=== PATIENT | female | born 1945 | race Caucasian/White ===

== ENCOUNTER 2016-07-05 20:20 | Inpatient (IN) | payer MEDICARE, OTHER ==
[~2016-07-05] VITALS: Ht 157.5 cm; Wt 75.2 kg
[~2016-07-05 20:20] MED LIST: HYD25 PO; LISI40TA PO; OMEP20CA16 PO; [UNRECOGNIZED DRUG - CODE] SC
[2016-07-05 21:41] LABS: BASOPHIL # 0.1 10^3/ul (0.0-0.1); BASOPHILS % 0.5 % (0.0-2.0); EOSINOPHILS # 0.2 10^3/ul (0.0-0.5); EOSINOPHILS % 1.3 % (0.0-7.0); HEMATOCRIT 43.9 % (37.0-47.0); HEMOGLOBIN 14.9 g/dl (12.0-16.0); LYMPHOCYTES # 6.1 10^3/ul (0.8-2.9); LYMPHOCYTES % 47.4 % (15.0-51.0); MEAN CORPUSCULAR HEMOGLOBIN 28.6 pg (29.0-33.0); MEAN CORPUSCULAR VOLUME 84.1 fl (82.0-101.0); MEAN PLATELET VOLUME 9.8 fl (7.4-10.4); MONOCYTES % 7.8 % (0.0-11.0); NEUTROPHIL # 5.5 10^3/ul (1.6-7.5); PLATELET COUNT 288 10^3/UL (140-440); RED BLOOD COUNT 5.23 10^6/ul (4.20-5.40); RED CELL DISTRIBUTION WIDTH 13.1 % (11.5-14.5); UNCORRECTED WBC 12.8 10^3/ul (4.8-10.8); WHITE BLOOD COUNT 12.8 10^3/ul (4.8-10.8)
[2016-07-05 21:42] LABS: CONDITION 1
[2016-07-05 21:48] LABS: CHLORIDE 95 mmol/L (97-110); INR 0.97; POTASSIUM 3.4 mmol/L (3.5-5.1); PROTIME 12.9 Sec (12.2-14.2); SODIUM 139 mmol/L (135-144)
[2016-07-05 21:49] LABS: PARTIAL THROMBOPLASTIN TIME 25.3 Sec (25.0-35.0)
[2016-07-05 21:51] LABS: ANION GAP 16 (8-16); BLOOD UREA NITROGEN 54 mg/dl (7-20); CALCIUM 9.2 mg/dl (8.4-10.2); CARBON DIOXIDE 31 mmol/L (21-31); CREATININE 1.68 mg/dl (0.44-1.00); GLUCOSE 333 mg/dl (70-220)
[2016-07-05 22:05] LABS: TROPONIN-I < 0.012 ng/ml (0.00-0.12)
--- NOTE | 2016-07-05 22:37 | ERA ---
ER Documentation Chief Complaint Date/Time DATE: 07/05/16 TIME: 22:35 Chief Complaint "HIGH SUGAR, COUGH, CONGESTION, HEADACHE, FOR 2 WEEKS" GLUCOSE 248 HPI This is a 71-year-old female presents to the emergency room for evaluation of a cough, congestion, chest pain for the past 2 weeks. The patient does state that she has hypertension and is a type II diabetic. The patient localizes chest pain in the center of her chest with no radiation and describes the pain as a sharp pain. Patient denies any aggravating or relieving factors for her pain and came to the ER for evaluation. ROS All systems reviewed and are negative except as per history of present illness. Medications Home Meds Reported Medications [[id number]] No Conflict Check, 25 SC BID 09/05/14 Omeprazole* (Omeprazole*) 20 Mg Capsule.dr, 20 MG PO DAILY 03/30/13 Hydrochlorothiazide* (Hydrochlorothiazide*) 25 Mg Tab, 25 MG PO BID 03/30/13 Lisinopril* (Prinivil*) 40 Mg Tablet, 40 MG PO BID 03/30/13 Allergies Allergies: Coded Allergies: No Known Drug Allergy (Verified Allergy, Unknown, 08/05/06) Uncoded Allergies: CODEIN (Allergy, Intermediate, RASHES, 09/05/14) PMhx/Soc History of Surgery: Yes (HYSTERECTOMY) Anesthesia Reaction: No Hx Neurological Disorder: No Hx Respiratory Disorders: No Hx Psychiatric Problems: No Hx Miscellaneous Medical Probl: No Hx Alcohol Use: No Hx Substance Use: No Hx Tobacco Use: No Smoking Status: Never smoker Physical Exam Vitals Vital Signs Date Time Temp Pulse Resp B/P Pulse Ox O2 Delivery O2 Flow Rate FiO2 07/05/16 20:26 97.8 55 18 136/67 100 Physical Exam INITIAL VITAL SIGNS: Reviewed by me GENERAL: The patient is well developed and appropriate for usual state of health in no apparent distress HEENT: Pupils equal, round, and reactive to light. EOMI. There is no scleral icterus. NECK: C-spine is soft and supple, there is no meningismus. There is no cervical lymphadenopathy. LUNGS: Clear to auscultation bilaterally. There are no rales, wheezes or rhonchi. HEART: Regular rate and rhythm, no murmurs, clicks, rubs or gallops. ABDOMEN: Soft, non-tender, non-distended. There are bowel sounds in all four quadrants. No rebound or guarding. EXTREMITIES: There is no peripheral cyanosis or edema. No focal swelling or erythema. NEUROLOGICAL: The patient moves all four extremities with 5/5 strength. Cranial nerves II - XII are intact. Normal gait. Alert and oriented SKIN: There is no apparent rash or petechiae. HEME/LYMPHATIC: There is no evidence of excessive bruising or lymphedema. PSYCHIATRIC: The patient does not appear anxious or depressed. Not Result Diagram: 07/05/16212007/05/162120 Results 24 hrs Laboratory Tests Test 07/05/16 20:26 07/05/16 21:21 Bedside Glucose 248mg/dL Activated Partial Thromboplast Time 25.3Sec Anion Gap 16 Basophils # 0.110^3/ul Basophils % 0.5% Blood Morphology Comment Blood Urea Nitrogen 54mg/dl Calcium Level 9.2mg/dl Carbon Dioxide Level 31mmol/L Chloride Level 95mmol/L Creatinine 1.68mg/dl Eosinophils # 0.210^3/ul Eosinophils % 1.3% Glucose Level 333mg/dl Hematocrit 43.9% Hemoglobin 14.9g/dl INR International Normalized Ratio 0.97 Lymphocytes # 6.110^3/ul Lymphocytes % 47.4% Mean Corpuscular Hemoglobin 28.6pg Mean Corpuscular Hemoglobin Concent 34.0g/dl Mean Corpuscular Volume 84.1fl Mean Platelet Volume 9.8fl Monocytes # 1.010^3/ul Monocytes % 7.8% Neutrophils # 5.510^3/ul Neutrophils % 43.0% Nucleated Red Blood Cells # 0.010^3/ul Nucleated Red Blood Cells % 0.0/100WBC Platelet Count 34891^3/UL Potassium Level 3.4mmol/L Prothrombin Time 12.9Sec Prothrombin Time Ratio 1.0 Red Blood Count 5.2310^6/ul Red Cell Distribution Width 13.1% Sodium Level 139mmol/L Troponin I < 0.012ng/ml White Blood Count 12.810^3/ul Procedures/MDM EKG: Rate/Rhythm: [Normal Sinus Rhythm] QRS, ST, T-waves: [No changes consistent w/ acute ischemia] Impression: [No evidence of ischemia or arrhythmia] Chest X-ray 1V Interpreted by me: Soft Tissue: No acute abnormalities Bones: No acute abnormalities Mediastinum/Cardiac Silhouette/Lungs: [No acute abnormalities] This is a 71-year-old female presents to the ER for evaluation of chest pain. First troponin is negative, first EKG is nonischemic. Chest x-ray is within normal limits. Given this patient's age and risk factors she will be placed in for admission at this time on a telemetry floor under the care of . I have contacted her primary care physician who is okay with the admission. Departure Diagnosis: Primary Impression: Chest pain Additional Impression: Renal insufficiency Condition: STEPHANIE Maldonado DO Jul 05, 2016 22:37
[2016-07-05] MEDS ORDERED: SITA100T8 PO (22:40)
[2016-07-05] MEDS ORDERED: LOSA1TAB20 PO (22:40)
[2016-07-05] MEDS ORDERED: CEFD300C2 PO (22:40)
[2016-07-05] MEDS ORDERED: METO100T13 PO (22:40)
[2016-07-05] MEDS ORDERED: ACETAMINOPHEN 325 MG TAB PO PRN (23:00)
[2016-07-05] MEDS ORDERED: ONDANSETRON 4 MG INJ IV PRN (23:00)
--- NOTE | 2016-07-05 23:47 | RADRPT ---
PROCEDURE: XR Chest. CLINICAL INDICATION: Chest pain TECHNIQUE: Single frontal chest x-ray. COMPARISON: None. FINDINGS: The lungs are adequately expanded. There is eventration of the left hemidiaphragm. There is no foc al consolidation, pleural effusion, or pneumothorax. There is mild cardiomegaly. Mediastinal conto urs are unremarkable. There is mild right convex curvature of the thoracic spine with degenerative disk disease within the thoracic spine. There are no acute fractures. RPTAT: ZZ IMPRESSION: 1. Mild cardiomegaly. 2. No acute pulmonary abnormality. .Sri Cary MD, MD Date Time Electronically viewed and signed by .Sri Cary MD, MD on 07/05/2016 23:47 .T/
[2016-07-06] VITALS (13 sets, daily range): BP systolic 94–170; BP diastolic 52–73; PULSE 47–60; RESP 16–20; Ht 157.5 cm; Wt 75.2 kg
[2016-07-06] MEDS ORDERED: ONDANSETRON 4 MG INJ IV PRN (03:00)
[2016-07-06 03:30] LABS: CREATINE KINASE 34 IU/L (23-200)
[2016-07-06] MEDS ORDERED: GLUCOSE GEL 15 GRAM TUBE PO PRN ×2 (03:30)
[2016-07-06] MEDS ORDERED: DEXTROSE 50% 50 ML SYRINGE IV PRN ×2 (03:30)
[2016-07-06] MEDS ORDERED: GLUCOSE GEL 15 GRAM TUBE BUCCAL PRN (03:30)
[2016-07-06] MEDS ORDERED: GLUCAGON 1 MG INJ IM PRN (03:30)
[2016-07-06 03:46] LABS: TROPONIN-I < 0.012 ng/ml (0.00-0.12)
[2016-07-06] MEDS: PANTOPRAZOLE (EC) 40 MG TAB PO SCH (05:21)
[2016-07-06 07:20] LABS: BASOPHIL # 0.1 10^3/ul (0.0-0.1); BASOPHILS % 0.6 % (0.0-2.0); EOSINOPHILS # 0.2 10^3/ul (0.0-0.5); EOSINOPHILS % 2.1 % (0.0-7.0); HEMATOCRIT 41.8 % (37.0-47.0); LYMPHOCYTES # 5.9 10^3/ul (0.8-2.9); LYMPHOCYTES % 55.4 % (15.0-51.0); MEAN CORPUSCULAR HEMOGLOBIN 28.6 pg (29.0-33.0); MEAN CORPUSCULAR HGB CONC 33.5 g/dl (32.0-37.0); MEAN CORPUSCULAR VOLUME 85.5 fl (82.0-101.0); MONOCYTE # 0.7 10^3/ul (0.3-0.9); NEUTROPHIL # 3.7 10^3/ul (1.6-7.5); NEUTROPHILS % 34.9 % (39.0-77.0); PLATELET COUNT 263 10^3/UL (140-440); RED BLOOD COUNT 4.88 10^6/ul (4.20-5.40); UNCORRECTED WBC 10.6 10^3/ul (4.8-10.8); WHITE BLOOD COUNT 10.6 10^3/ul (4.8-10.8)
[2016-07-06 07:24] LABS: CONDITION 1; LH ANALYZER COMMENTS 1
[2016-07-06] MEDS ORDERED: INSULIN ASPART [NOVOLOG] 3 ML PEN SC SCH ×2 (07:30→21:00)
[2016-07-06 07:37] LABS: POTASSIUM 3.6 mmol/L (3.5-5.1)
[2016-07-06 07:39] LABS: CREATININE 1.47 mg/dl (0.44-1.00)
[2016-07-06 07:40] LABS: PHOSPHORUS 4.6 mg/dl (2.5-4.9)
[2016-07-06 07:41] LABS: CALCIUM 9.3 mg/dl (8.4-10.2); CHOL/HDL RATIO 5.1 RATIO; MAGNESIUM 1.9 mg/dl (1.7-2.5)
[2016-07-06] MEDS: HYDROCHLOROTHIAZIDE 25 MG TAB PO SCH (09:00)
[2016-07-06] MEDS ORDERED: NON-FORMULARY/PATIENT OWN MED (Losartan-Hydrochlorothiazide (Losartan-HCTZ) 1 TAB) PO SCH (09:00)
[2016-07-06] MEDS ORDERED: NON-FORMULARY/PATIENT OWN MED (Sitagliptin* (Januvia*) 100 MG) PO SCH (09:00)
[2016-07-06] MEDS ORDERED: LISINOPRIL 20 MG TAB PO SCH ×2 (09:00)
[2016-07-06] MEDS ORDERED: NON-FORMULARY/PATIENT OWN MED (Omeprazole* 20 MG) PO SCH (09:00)
[2016-07-06] MEDS ORDERED: METOPROLOL (XL) 100 MG TAB PO SCH (09:00)
[2016-07-06] MEDS ORDERED: [UNRECOGNIZED DRUG - OTHER] SC SCH (09:00)
[2016-07-06] MEDS ORDERED: HYDROCHLOROTHIAZIDE 25 MG TAB PO SCH (09:00)
[2016-07-06] MEDS: LINAGLIPTIN 5 MG TABLET PO SCH (09:10)
[2016-07-06] MEDS: LOSARTAN 50 MG TAB PO SCH (09:12)
[2016-07-06] MEDS: INSULIN ISOPHANE SC SCH ×2 (09:17→23:08)
[2016-07-06] MEDS: INSULIN REGULAR SC SCH ×2 (09:17→23:08)
[2016-07-06] MEDS: Insulin NOVOLOG SS MODERATE Algorithm (SS with meals and bedtime) SC SCH ×4 (09:17→21:00)
[2016-07-06 11:21] LABS: CREATINE KINASE 29 IU/L (23-200)
[2016-07-06 11:30] LABS: CK-MB 0.47 ng/ml (0.0-2.4)
[2016-07-06 11:37] LABS: TROPONIN-I < 0.012 ng/ml (0.00-0.12)
[2016-07-06] MEDS: ACETAMINOPHEN 325 MG TAB PO PRN (14:58)
[2016-07-06] MEDS: LISINOPRIL 10 MG TAB PO SCH (21:00)
--- NOTE | 2016-07-06 22:34 | CONS ---
DATE OF ADMISSION: 07/05/2016 DATE OF CONSULTATION: HISTORY OF PRESENT ILLNESS: This is a 71-year-old female with history of diabetes. The patient has been admitted here previously, and the reviewer is advised to contact old record for further details. Please note she speaks [place]ijani, and information may be limited. Her medications at home include: 1. Omeprazole. 2. Hydrochlorothiazide. 3. Lisinopril. 4. Insulin 70/30 twenty-five units b.i.d. 5. Atenelol She was not feeling well and was brought to the emergency room, where blood sugar was 333. BUN and creatinine elevated at 54 and 1.6 respectively. The patient has been since already started on IV fluids, and blood sugars have already begun to improve. PAST MEDICAL HISTORY: The rest of the past history is again poorly elicited. The patient has had a knee surgery in this facility. PERSONAL HISTORY: The patient is and has been living with family members. Apparently her has not been around for 30 years. REVIEW OF SYSTEMS: Rest of the systems is negative for any head, ear, nose, throat problem. She is denying eye problems. No history of neck pain, chest pain although she has admitted to chest pain to the emergency room physician. No acute abdominal pain, flank pain. 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 No seizure, syncope or other medical problem. Additional lab work done in the emergency room also revealed a white count of 12.8 which has now dropped to 10.6. Hematocrit is stable around 43%. The CPK is normal. Blood sugar, as mentioned, has already begun to come down, and the patient is feeling much better. Rest of the system review is unremarkable for any acute joint pain, gout, seizures, syncope, fevers, chills or any other metabolic problem. PHYSICAL EXAMINATION: GENERAL: A pleasant Latin female who is in no acute distress. VITAL SIGNS: Blood pressure is 110/50, heart rate is 60, temperature is 97, respiration is not labored at 18. HEAD, EARS: Unremarkable. EYES: Pale conjunctivae. Sclerae nonicteric. NOSE: Normal mucosa. THROAT: Tongue is pale. No pharyngeal congestion. NECK: Supple. No jugular venous distention. CHEST: Symmetrical. BREASTS: Not examined. LUNGS: Clear. HEART: Regular rhythm, S1 unremarkable. ABDOMEN: Flat, soft. No masses. GENITALIA: Not examined. EXTREMITIES: No cyanosis, clubbing, edema. SKIN: Unremarkable. IMPRESSION: 1. History of diabetes mellitus, out of control. 2. Azotemia, probably prerenal in nature, r/o underlying CKD3. 3. Probably poor compliance. PLAN: This patient has already begun to improve in regard to the blood sugar. Whether she needs further intervention by Endocrinology is a consideration. The patient's blood sugar will be monitored closely. Diabetic education will be provided. As soon as she is stable, she can be discharged. Dictated By: ROHINI JAMES/AUTUMN Conf#: [id number] DID#: [id number] LORENE
[2016-07-07] VITALS (12 sets, daily range): BP systolic 100–122; BP diastolic 54–59; PULSE 53–65; RESP 16–18
[2016-07-07] MEDS: ACCUCHECK AT 2AM (Patients on SS coverage) XX SCH ×2 (02:00)
[2016-07-07] MEDS: PANTOPRAZOLE (EC) 40 MG TAB PO SCH (06:14)
[2016-07-07 07:55] LABS: ALBUMIN 3.3 g/dl (3.3-4.9)
[2016-07-07 07:56] LABS: POTASSIUM 3.3 mmol/L (3.5-5.1)
[2016-07-07 07:58] LABS: ALBUMIN/GLOBULIN RATIO 1.13; BILIRUBIN,INDIRECT 0.2 mg/dl (0-1.1); BILIRUBIN,TOTAL 0.2 mg/dl (0.2-1.3); CREATININE 1.88 mg/dl (0.44-1.00); TOTAL PROTEIN 6.2 g/dl (6.1-8.1)
[2016-07-07 07:59] LABS: CALCIUM 8.8 mg/dl (8.4-10.2)
[2016-07-07] MEDS: Insulin NOVOLOG SS MODERATE Algorithm (SS with meals and bedtime) SC SCH ×4 (09:07→21:26)
[2016-07-07] MEDS: LISINOPRIL 10 MG TAB PO SCH ×2 (09:11→21:23)
[2016-07-07] MEDS: LOSARTAN 50 MG TAB PO SCH (09:11)
[2016-07-07] MEDS: HYDROCHLOROTHIAZIDE 25 MG TAB PO SCH (09:12)
[2016-07-07] MEDS: LINAGLIPTIN 5 MG TABLET PO SCH (09:13)
[2016-07-07] MEDS: METOPROLOL (XL) 25 MG TAB PO SCH ×2 (09:13→21:23)
[2016-07-07] MEDS: INSULIN ISOPHANE SC SCH ×2 (09:16→21:24)
[2016-07-07] MEDS: INSULIN REGULAR SC SCH ×2 (09:16→21:24)
[2016-07-07] MEDS: ACETAMINOPHEN 325 MG TAB PO PRN (18:33)
--- NOTE | 2016-07-07 22:36 | CONS ---
Date/Time of Note Date/Time of Note DATE: 07/07/16 TIME: 22:36 Assessment/Plan Assessment/Plan Chief Complaint/Hosp Course BS still running high Pt seen by Canvas Baster Jumpbasting Await endo consult & begin dc plans Problems: Consultation Date/Type/Reason Admit Date/Time Jul 05, 2016 at 22:35 Initial Consult Date Type of Consultation: renal Reason for Consultation DM out of control, Azotemia 24 HR Interval Summary Free Text/Dictation speaks thai only Constitutional: improved Exam/Review of Systems Vital Signs Vitals Vital Signs Date Time Temp Pulse Resp B/P Pulse Ox O2 Delivery O2 Flow Rate FiO2 07/07/16 20:28 65 07/07/16 20:00 98.5 17 115/55 97 07/06/16 01:14 Room Air Intake and Output 07/06/16 07/06/16 07/07/16 15:00 23:00 07:00 Intake Total 810 ml 720 ml Balance 810 ml 720 ml Exam Constitutional: alert, oriented, well developed Psych: nl mood/affect, no complaints Head: atraumatic, normocephalic Eyes: EOMI, PERRL, nl conjunctiva, nl lids, nl sclera ENMT: nl external ears & nose, nl lips & teeth, nl nasal mucosa & septum Neck: non-tender, supple Respiratory: clear to auscultation, normal air movement Cardiovascular: nl pulses, regular rate and rhythm Gastrointestinal: nl liver, spleen, non-tender, soft Genitourinary - Female: other (BUN/Creat still high) Musculoskeletal: nl extremities to inspection, nl gait and stance Extremities: normal pulses Neurological: NEW [employer]IENT B[employer]ING SERVICES CLERK II-XII intact, nl mental status, nl speech, nl strength Additional Comments Will request 24 hr urine study to eval renal fn Results Result Diagram: 07/06/16 0601 07/07/16 0712 Results 24 hrs Laboratory Tests Test 07/07/16 07:12 07/07/16 08:55 07/07/16 12:46 07/07/16 17:05 Alanine Aminotransferase (ALT/SGPT) 43 Albumin 3.3 Albumin/Globulin Ratio 1.13 Alkaline Phosphatase 106 Anion Gap 15 Aspartate Amino Transf (AST/SGOT) 36 Blood Urea Nitrogen 68 H Calcium Level 8.8 Carbon Dioxide Level 29 Chloride Level 97 Creatinine 1.88 H Direct Bilirubin 0.00 Globulin 2.90 Glucose Level 209 Indirect Bilirubin 0.2 Potassium Level 3.3 L Sodium Level 138 Total Bilirubin 0.2 Total Protein 6.2 Bedside Glucose 203 245 H 148 Test 07/07/16 19:02 07/07/16 20:52 Phosphorus Level 3.9 Bedside Glucose 245 H Medications Medications Current Medications Acetaminophen (Tylenol Tab) 650 mg Q6H PRN PO PAIN AND OR ELEVATED TEMP Last administered on 07/07/16 18:33; Admin Dose 650 MG; Start 07/06/16 at 03:00 Ondansetron HCl (Zofran Inj) 4 mg Q4H PRN IV NAUSEA AND/OR VOMITING; Start at 03:00 Insulin Human Isoph/Insulin Regular (Humulin (70/30)) 10 unit BID SC Last administered on 07/07/16 21:24; Admin Dose 10 UNIT; Start 07/06/16 at 09:00 Linagliptin (Tradjenta) 5 mg DAILY PO Last administered on 07/07/16 09:13; Admin Dose 5 MG; Start 07/06/16 at 09:00 Miscellaneous Information 1 ea NOTE XX ; Start 07/06/16 at 03:30 Glucose (Glutose) 15 gm Q15M PRN PO DECREASED GLUCOSE; Start 07/06/16 at 03:30 Glucose (Glutose) 22.5 gm Q15M PRN PO DECREASED GLUCOSE; Start 07/06/16 at 03: 30 Dextrose (D50w Syringe) 25 ml Q15M PRN IV DECREASED GLUCOSE; Start 07/06/16 at 03:30 Dextrose (D50w Syringe) 50 ml Q15M PRN IV DECREASED GLUCOSE; Start 07/06/16 at 03:30 Glucagon (Glucagen) 1 mg Q15M PRN IM DECREASED GLUCOSE; Start 07/06/16 at 03:30 Glucose (Glutose) 15 gm Q15M PRN BUCCAL DECREASED GLUCOSE; Start 07/06/16 at 03 :30 Pantoprazole (Protonix Tab) 40 mg DAILY@06 PO Last administered on 07/07/16 06 :14; Admin Dose 40 MG; Start 07/06/16 at 06:00 Losartan Potassium (Cozaar) 100 mg DAILY PO Last administered on 07/07/16 09: 11; Admin Dose 100 MG; Start 07/06/16 at 09:00 Hydrochlorothiazide (Hydrochlorothiazide) 25 mg DAILY PO Last administered on 09:12; Admin Dose 25 MG; Start 07/06/16 at 09:00 Diagnostic Test (Pha) (Accucheck) 1 ea 02 XX ; Start 07/07/16 at 02:00 Lisinopril (Zestril) 10 mg BID PO Last administered on 07/07/16 21:23; Admin Dose 10 MG; Start 07/06/16 at 21:00 Metoprolol Succinate (Toprol Xl) 25 mg BID PO Last administered on 07/07/16 21 :23; Admin Dose 25 MG; Start 07/07/16 at 09:00 Diagnostic Test (Pha) (Accucheck) 1 ea XX ; Start 07/07/16 at 02:00 ROHINI BERRIOS MD Jul 07, 2016 22:36
[2016-07-08] VITALS (13 sets, daily range): BP systolic 101–134; BP diastolic 49–72; PULSE 57–75; RESP 17–18
[2016-07-08] MEDS: ACCUCHECK AT 2AM (Patients on SS coverage) XX SCH ×2 (02:34)
[2016-07-08] MEDS: PANTOPRAZOLE (EC) 40 MG TAB PO SCH (06:02)
[2016-07-08] MEDS: LINAGLIPTIN 5 MG TABLET PO SCH (08:07)
[2016-07-08] MEDS: LISINOPRIL 10 MG TAB PO SCH (08:08)
[2016-07-08] MEDS: LOSARTAN 50 MG TAB PO SCH (08:08)
[2016-07-08] MEDS: HYDROCHLOROTHIAZIDE 25 MG TAB PO SCH (08:08)
[2016-07-08] MEDS: METOPROLOL (XL) 25 MG TAB PO SCH (08:09)
[2016-07-08] MEDS: Insulin NOVOLOG SS MODERATE Algorithm (SS with meals and bedtime) SC SCH ×4 (08:10→20:40)
[2016-07-08] MEDS: INSULIN ISOPHANE SC SCH (08:11)
[2016-07-08] MEDS: INSULIN REGULAR SC SCH (08:11)
[2016-07-08] MEDS ORDERED: INSULIN REGULAR SC ONE (10:00)
[2016-07-08] MEDS ORDERED: INSULIN ISOPHANE SC ONE (10:00)
--- NOTE | 2016-07-08 13:29 | CONS ---
Date/Time of Note Date/Time of Note DATE: 07/08/16 TIME: 13:22 Assessment/Plan Assessment/Plan Additional Assessment/Plan Chest pain Myalgias Hypertension Diabetes Obesity Acute kidney injury -Discussed with the patient via candy spreader helper her symptoms. Patient with fevers and chills, body aches, chest pain with deep inspiration and cough. Her symptoms have since improved but still with body aches and bilateral lower extremity pain. Serial cardiac enzymes remain negative, ECG without any significant ischemic abnormalities. Will obtain echocardiogram, start aspirin, check d-dimer and venous Dopplers. Consultation Date/Type/Reason Admit Date/Time Jul 05, 2016 at 22:35 Type of Consultation: cv Reason for Consultation Chest pain Hx of Present Illness This is a 71-year-old female with past medical history of hypertension, diabetes who presents with multiple complaints. Patient states over the past 4- 5 days, she has been having fevers and chills, productive cough with green phlegm. Over the past 2 days she developed chest pain. Chest pain is sharp in nature, worse with deep breaths and with coughing. Chest pain feels occasionally like electric shocks in her chest. She also complains of bilateral lower extremity electric shock feeling which has been off and on over the past few weeks. She denies any dizziness or lightheadedness. She complains of myalgias. Today compared to yesterday, her chest discomfort has improved and her shortness of breath. Her cough is less productive. She otherwise denies exertional chest pain or shortness of breath. She does complain of fatigue after long walks but no chest pain. History was obtained via candy spreader helper. 12 point review of systems was performed with all pertinent positives and negatives mentioned above and all else is negative Constitutional: improved Psychological: nl mood/affect, no complaints Past Medical History Medical History: diabetes, hypertension, renal disease Family History Significant Family History: other (Father with heart disease in his late 50s) Social History Alcohol Use: none Smoking Status: Never smoker Exam/Review of Systems Vital Signs Vitals Vital Signs Date Time Temp Pulse Resp B/P Pulse Ox O2 Delivery O2 Flow Rate FiO2 07/08/16 12:18 61 07/08/16 12:09 97.9 17 133/61 96 07/06/16 01:14 Room Air Intake and Output 07/07/16 07/07/16 07/08/16 15:00 23:00 07:00 Intake Total 800 ml 400 ml Balance 800 ml 400 ml Exam No apparent distress, sitting and eating lunch Constitutional: alert, obese, oriented Head: normocephalic Neck: supple Respiratory: other (Coarse breath sounds bilaterally, no wheezing) Cardiovascular: other (S1-S2 heard), regular rate and rhythm Gastrointestinal: bowel sounds, non-tender, other (No guarding), soft Musculoskeletal: other (Discomfort with palpation of chest wall and bilateral shoulders) Extremities: edema (Trace) Results Result Diagram: 07/06/16 0601 07/07/16 0712 Results 24 hrs Laboratory Tests Test 07/07/16 17:05 07/07/16 19:02 07/07/16 20:52 07/08/16 01:50 Bedside Glucose 148 245 H 189 Phosphorus Level 3.9 Test 07/08/16 07:29 07/08/16 11:29 Bedside Glucose 214 299 H Medications Medications Current Medications Acetaminophen (Tylenol Tab) 650 mg Q6H PRN PO PAIN AND OR ELEVATED TEMP Last administered on 07/07/16 18:33; Admin Dose 650 MG; Start 07/06/16 at 03:00 Ondansetron HCl (Zofran Inj) 4 mg Q4H PRN IV NAUSEA AND/OR VOMITING; Start at 03:00 Linagliptin (Tradjenta) 5 mg DAILY PO Last administered on 07/08/16 08:07; Admin Dose 5 MG; Start 07/06/16 at 09:00 Miscellaneous Information 1 ea NOTE XX ; Start 07/06/16 at 03:30 Glucose (Glutose) 15 gm Q15M PRN PO DECREASED GLUCOSE; Start 07/06/16 at 03:30 Glucose (Glutose) 22.5 gm Q15M PRN PO DECREASED GLUCOSE; Start 07/06/16 at 03: 30 Dextrose (D50w Syringe) 25 ml Q15M PRN IV DECREASED GLUCOSE; Start 07/06/16 at 03:30 Dextrose (D50w Syringe) 50 ml Q15M PRN IV DECREASED GLUCOSE; Start 07/06/16 at 03:30 Glucagon (Glucagen) 1 mg Q15M PRN IM DECREASED GLUCOSE; Start 07/06/16 at 03:30 Glucose (Glutose) 15 gm Q15M PRN BUCCAL DECREASED GLUCOSE; Start 07/06/16 at 03 :30 Pantoprazole (Protonix Tab) 40 mg DAILY@06 PO Last administered on 07/08/16 06 :02; Admin Dose 40 MG; Start 07/06/16 at 06:00 Diagnostic Test (Pha) (Accucheck) 1 ea 02 XX Last administered on 07/08/16 02: 34; Admin Dose 1 EA; Start 07/07/16 at 02:00 Diagnostic Test (Pha) (Accucheck) 1 ea 02 XX Last administered on 07/08/16 02: 34; Admin Dose 1 EA; Start 07/07/16 at 02:00 Insulin Human Isoph/Insulin Regular (Humulin (70/30)) 15 unit BID SC ; Start at 21:00 Lisinopril (Zestril) 20 mg BID PO ; Start 07/08/16 at 21:00 Metoprolol Succinate (Toprol Xl) 25 mg QHS PO ; Start 07/09/16 at 21:00 Acetaminophen/ Aspirin/Caffeine (Excedrin) 1 tab DAILY ONCE PO ; Start at 10:00; Stop 07/08/16 at 10:01; Status UNV Procedures Procedures ECG done on the demonstrates sinus bradycardia 56 bpm, left anterior fascicular block, no significant ischemic STT wave abnormalities Solitario Sahni DO Jul 08, 2016 13:29
[2016-07-08] MEDS: ACETAMINOPHEN 325 MG TAB PO PRN ×2 (13:40→22:39)
[2016-07-08 14:07] LABS: CHOL/HDL RATIO 5.4 RATIO
--- NOTE | 2016-07-08 14:58 | RADRPT ---
Echocardiogram Report Patient Name: AKSHAT GREY Gender: Female Date: 1945 Study Date: 08-Jul-2016 Coffee Grinder: Ramon Castro [facility] Location: [id number] Ref. Physician: SOLITARIO SAHNI Quality: Adequate Procedures: Transthoracic echocardiogram with complete 2D, M-Mode, and doppler examination. Indications: Chest Pain. Shortness of breath. 2D/M Mode Doppler Measurement Value Normal Ranges Measurement Value Normal Ranges LVIDd 2D 4.8 3.5 - 5.6 cm AV Peak Abdelrahman 1.3 m/sec LVIDs 2D 2.4 2.1 - 4.1 cm AV Peak PG 7.0 mmHg FS 2D 50.3 % LVOT Peak Abdelrahman 1.1 m/sec LVPWd 2D 0.9 0.6 - 1.1 cm LVOT Peak PG 5.0 mmHg IVSd 2D 0.9 0.6 - 1.1 cm MV E Peak Abdelrahman 0.4 m/sec IVS/LVPW 2D 1.0 MV A Peak Abdelrahman 0.8 m/sec AoR Diam 2D 3.0 2.0 - 3.7 cm MV E/A 0.5 LA/Ao 2D 1 0 - 1 MV Decel Time 257 msec EDV 2D 109.0 cm3 MV E/A 0.5 ESV 2D 13.3 cm3 TR Peak Abdelrahman 2.3 m/sec LA Dimen 2D 3.5 2.3 - 4.0 cm TR Peak PG 21.0 mmHg RVSP 24.0 mmHg Findings Left Ventricle: Normal left ventricular systolic function. Normal left ventricular cavity size. Normal left ventricular wall thickness. Ejection fraction is visually estimated at 65 %. Tissue Doppler/Mitral Doppler indices are consistent with impaired relaxation (Stage I diastolic dysfunction). Right Ventricle: Normal right ventricular size. Normal right ventricular systolic function. Left Atrium: The left atrium is normal in size. Right Atrium: The right atrium is normal in size. Mitral Valve: Mitral valve leaflets appear mildly thickened. Mild mitral annular calcification. Trace mitral regurgitation. Aortic Valve: Normal appearance of the aortic valve. No significant aortic stenosis or insufficiency. Tricuspid Valve: Normal appearance of the tricuspid valve. Estimated peak PA systolic pressure 24 mmHg. There is trace tricuspid regurgitation. Pulmonic Valve: Normal pulmonic valve appearance. Pericardium: Normal pericardium with no significant pericardial effusion. Aorta: Normal aortic root. IVC: Normal size and normal respiratory collapse consistent with normal right atrial pressure. Conclusions 1.Normal left ventricular systolic function. Normal left ventricular cavity size. Normal left ventricular wall thickness. Ejection fraction is visually estimated at 65 %. Tissue Doppler/Mitral Doppler indices are consistent with impaired relaxation (Stage I diastolic dysfunction). 2.Normal right ventricular size. Normal right ventricular systolic function. 3.The left atrium is normal in size. 4.The right atrium is normal in size. 5.No significant valvular stenosis or regurgitation seen. 6.Normal pericardium with no significant pericardial effusion. Electronically Signed By: Solitario Sahni 08-Jul-2016 14:57:20 -0800 Patient Name: AKSHAT GREY Study Date: 08-Jul-2016 [id number]
[2016-07-08] MEDS ORDERED: POTASSIUM CHLORIDE (SR) 10 MEQ TAB PO ONE (15:30)
[2016-07-08 16:18] LABS: POTASSIUM 3.9 mmol/L (3.5-5.1)
[2016-07-08 16:21] LABS: CREATININE 1.72 mg/dl (0.44-1.00)
[2016-07-08 16:22] LABS: CALCIUM 9.3 mg/dl (8.4-10.2); MAGNESIUM 1.9 mg/dl (1.7-2.5)
[2016-07-08 17:50] LABS: ADD UMIC YES; URINE BILIRUBIN (Dip) NEGATIVE (NEGATIVE); URINE BLOOD (Dip) NEGATIVE (NEGATIVE); URINE COLOR LT. YELLOW (YELLOW); URINE GLUCOSE (Dip) NEGATIVE (NEGATIVE); URINE KETONES (Dip) NEGATIVE (NEGATIVE); URINE LEUKOCYTE ESTERASE (Dip) 1+ (NEGATIVE); URINE NITRITE (Dip) NEGATIVE (NEGATIVE); URINE TOTAL PROTEIN (Dip) NEGATIVE (NEGATIVE); URINE UROBILINOGEN (Dip) 0.2 E.U./dL (0.1-1.0)
[2016-07-08 18:04] LABS: BACTERIA,URINE FEW; URINE RBCS 0-2 /HPF (0)
--- NOTE | 2016-07-08 19:53 | RADRPT ---
PROCEDURE: US Abdomen. CLINICAL INDICATION: Abdominal pain TECHNIQUE: Multiple real-time images were acquired of the patient's right upper quadrant utilizing a high resolution transducer. The images were reviewed on a high-resolution PACS workstation. COMPARISON: None FINDINGS: The liver demonstrates slightly increased in echogenicity and size and no focal lesions are seen. Th e liver measures 16.9 cm in size. No gallstones are identified within the gallbladder. There is no pericholecystic fluid. The gallbladder wall measures 2.8 mm in size. No intrahepatic biliary dilata tion is seen. The common bile duct measures 3.4 mm in maximal dimension. The pancreas is poorly vi sualized. No free fluid is identified. The right kidney is of normal size, and demonstrate normal echogenicity and morphology. The right k idney measures 11.1 cm. There are is no dilatation of the right collecting system. There are no pe rinephric fluid collections. There are no areas of increased echogenicity to suggest nephrolithiasi s. IMPRESSION: Suggestion of mild fatty infiltration of the liver. RPTAT: HPNM Physician Chuck Date Time Electronically viewed and signed by Physician Chuck on 07/08/2016 19:52 /
[2016-07-08] MEDS: LISINOPRIL 20 MG TAB PO SCH (20:45)
[2016-07-08] MEDS ORDERED: INSULIN DETEMIR [LEVEMIR] 3ML CART SC SCH (21:00)
[2016-07-08] MEDS ORDERED: INSULIN REGULAR SC SCH ×2 (21:00)
[2016-07-08] MEDS ORDERED: INSULIN ISOPHANE SC SCH ×2 (21:00)
--- NOTE | 2016-07-08 22:28 | CONS ---
Date/Time of Note Date/Time of Note DATE: 07/08/16 TIME: 22:09 Assessment/Plan Assessment/Plan Chief Complaint/Hosp Course BS still running high Pt seen by Stationary Fireman Await endo consult & begin dc plans Problems: Additional Assessment/Plan In light of BS hovering around 200, will proceed with increasing 70/30 Insulin, while awaiting Endo consult Will proceed with Cardio consult and get Stress test Also consider GBDis. If all normal, may dc in Am Consultation Date/Type/Reason Admit Date/Time Jul 05, 2016 at 22:35 Type of Consultation: renal 24 HR Interval Summary Free Text/Dictation Spoke to daughter at bedside who says t gas been hving chest pain. There's no associated sob, cough or hemoptysis No fever, chills; pt better overall. Exam/Review of Systems Vital Signs Vitals Vital Signs Date Time Temp Pulse Resp B/P Pulse Ox O2 Delivery O2 Flow Rate FiO2 07/08/16 20:08 60 07/08/16 20:06 98.0 18 134/69 97 07/06/16 01:14 Room Air Intake and Output 07/07/16 07/07/16 07/08/16 15:00 23:00 07:00 Intake Total 800 ml 400 ml Balance 800 ml 400 ml Exam Constitutional: alert, oriented, well developed Psych: nl mood/affect, no complaints Head: atraumatic, normocephalic Eyes: EOMI, PERRL, nl conjunctiva, nl lids, nl sclera ENMT: nl external ears & nose, nl lips & teeth, nl nasal mucosa & septum Neck: non-tender, supple Respiratory: clear to auscultation, normal air movement Cardiovascular: nl pulses, regular rate and rhythm Gastrointestinal: nl liver, spleen, non-tender, soft Genitourinary - Female: other (BUN/Creat remain elevated, await 24 hr urine study) Musculoskeletal: nl extremities to inspection, nl gait and stance Extremities: normal pulses Neurological: ANTENNA INSTALLER II-XII intact, nl mental status, nl speech, nl strength Skin: nl turgor, No rash or lesions Results Renal fn may have stabilized Result Diagram: 07/06/16 0601 07/08/16 1551 Results 24 hrs Laboratory Tests Test 07/08/16 01:42 07/08/16 01:50 07/08/16 07:29 07/08/16 11:29 Cholesterol Level 196 Cholesterol/HDL Ratio 5.4 HDL Cholesterol 36 LDL Cholesterol, Calculated 92 Triglycerides Level 341 H Bedside Glucose 189 214 299 H Test 07/08/16 15:51 07/08/16 16:56 07/08/16 17:00 07/08/16 19:32 Anion Gap 15 Blood Urea Nitrogen 62 H Calcium Level 9.3 Carbon Dioxide Level 31 Chloride Level 96 L Creatinine 1.72 H Glucose Level 247 H Magnesium Level 1.9 Potassium Level 3.9 Sodium Level 138 Bedside Glucose 208 149 Urine Bacteria FEW Urine Bilirubin NEGATIVE Urine Clarity CLEAR Urine Color LT. YELLOW Urine Epithelial Cells FEW Urine Glucose NEGATIVE Urine Hemoglobin NEGATIVE Urine Ketones NEGATIVE Urine Leukocyte Esterase 1+ H Urine Microscopic RBC 0-2 Urine Microscopic WBC 5-10 Urine Nitrite NEGATIVE Urine Specific [place] 1.010 Urine Total Protein NEGATIVE Urine Urobilinogen 0.2 E.U./dL Urine pH 5.5 Medications Medications Current Medications Acetaminophen (Tylenol Tab) 650 mg Q6H PRN PO PAIN AND OR ELEVATED TEMP Last administered on 07/08/16 13:40; Admin Dose 650 MG; Start 07/06/16 at 03:00 Ondansetron HCl (Zofran Inj) 4 mg Q4H PRN IV NAUSEA AND/OR VOMITING; Start at 03:00 Linagliptin (Tradjenta) 5 mg DAILY PO Last administered on 07/08/16 08:07; Admin Dose 5 MG; Start 07/06/16 at 09:00 Miscellaneous Information 1 ea NOTE XX ; Start 07/06/16 at 03:30 Glucose (Glutose) 15 gm Q15M PRN PO DECREASED GLUCOSE; Start 07/06/16 at 03:30 Glucose (Glutose) 22.5 gm Q15M PRN PO DECREASED GLUCOSE; Start 07/06/16 at 03: 30 Dextrose (D50w Syringe) 25 ml Q15M PRN IV DECREASED GLUCOSE; Start 07/06/16 at 03:30 Dextrose (D50w Syringe) 50 ml Q15M PRN IV DECREASED GLUCOSE; Start 07/06/16 at 03:30 Glucagon (Glucagen) 1 mg Q15M PRN IM DECREASED GLUCOSE; Start 07/06/16 at 03:30 Glucose (Glutose) 15 gm Q15M PRN BUCCAL DECREASED GLUCOSE; Start 07/06/16 at 03 :30 Pantoprazole (Protonix Tab) 40 mg DAILY@06 PO Last administered on 07/08/16 06 :02; Admin Dose 40 MG; Start 07/06/16 at 06:00 Diagnostic Test (Pha) (Accucheck) 1 ea 02 XX Last administered on 07/08/16 02: 34; Admin Dose 1 EA; Start 07/07/16 at 02:00 Lisinopril (Zestril) 20 mg BID PO Last administered on 07/08/16 20:45; Admin Dose 20 MG; Start 07/08/16 at 21:00 Metoprolol Succinate (Toprol Xl) 25 mg QHS PO ; Start 07/09/16 at 21:00 Acetaminophen/ Aspirin/Caffeine (Excedrin) 1 tab DAILY PRN PO PAIN; Start 07/08 at 10:00 Insulin Detemir (Levemir) 30 unit HS SC Last administered on 07/08/16 20:58; Admin Dose 30 UNIT; Start 07/08/16 at 21:00 ROHINI BERRIOS MD Jul 08, 2016 22:28
--- NOTE | 2016-07-08 22:44 | CONS ---
Date/Time of Note Date/Time of Note DATE: 07/08/16 TIME: 22:05 Assessment/Plan Assessment/Plan Problems: (1) Diabetes type 2, uncontrolled Status: Chronic Comment: Patient with uncontrolled diabetes mellitus type 2. HbA1c 12%. Add prandial dose of repaglinide. Change Humulin 70/30 to Detemir. Continue Tradjenta. Continue to monitor and make adjustments as needed. Qualifiers: Qualified Code: E11.22 - Uncontrolled type 2 diabetes mellitus with stage 3 chronic kidney disease, with long-term current use of insulin Consultation Date/Type/Reason Admit Date/Time Jul 05, 2016 at 22:35 Date of Consultation: Jul 08, 2016 Type of Consultation: Endocrine Reason for Consultation Diabetes Management Referring Provider: ROHINI BERRIOS MD Hx of Present Illness 71 year old woman with 23 year history of diabetes mellitus type 2 presents to [facility] at [facility] after several days of feeling "not well". Patient's PMD recently changed her insulin regimen from Humulin R 70/30 BID to Tresiba QD without prandial coverage. Patient claims blood glucose levels have been increasing. Patient states blood glucose levels on Wednesday were as high as 500 mg/dl. Eyes: no complaints ENT: no complaints Respiratory: no complaints Cardiovascular: chest pain, lightheadedness Gastrointestinal: diarrhea Genitourinary: no complaints Musculoskeletal: no complaints Skin: no complaints Neurologic: no complaints Endocrine: other (hyperglycemia) Psychological: nl mood/affect, no complaints Past Medical History Medical History: diabetes, hypertension, renal disease Past Surgical History Past Surgical Hx: other (knee surgery) Family History Significant Family History: heart disease, diabetes, other (stroke) Social History Alcohol Use: none Smoking Status: Never smoker Drug Use: none Exam/Review of Systems Vital Signs Vitals Vital Signs Date Time Temp Pulse Resp B/P Pulse Ox O2 Delivery O2 Flow Rate FiO2 07/08/16 20:08 60 07/08/16 20:06 98.0 18 134/69 97 07/06/16 01:14 Room Air Intake and Output 07/07/16 07/07/16 07/08/16 15:00 23:00 07:00 Intake Total 800 ml 400 ml Balance 800 ml 400 ml Exam Constitutional: alert, obese, oriented, well developed Psych: nl mood/affect Head: normocephalic Eyes: EOMI, PERRL, nl conjunctiva, nl sclera ENMT: mucosa pink and moist Neck: non-tender, supple Respiratory: clear to auscultation, normal air movement Cardiovascular: regular rate and rhythm Gastrointestinal: nl liver, spleen, non-tender, soft Musculoskeletal: nl extremities to inspection Extremities: normal pulses Neurological: SAIL REPAIR PERSON II-XII intact, nl mental status, nl speech, nl strength Skin: nl turgor Results POC and labs reviewed Result Diagram: 07/06/16 0601 07/08/16 1551 Results 24 hrs Laboratory Tests Test 07/08/16 01:42 07/08/16 01:50 07/08/16 07:29 07/08/16 11:29 Cholesterol Level 196 Cholesterol/HDL Ratio 5.4 HDL Cholesterol 36 LDL Cholesterol, Calculated 92 Triglycerides Level 341 H Bedside Glucose 189 214 299 H Test 07/08/16 15:51 07/08/16 16:56 07/08/16 17:00 07/08/16 19:32 Anion Gap 15 Blood Urea Nitrogen 62 H Calcium Level 9.3 Carbon Dioxide Level 31 Chloride Level 96 L Creatinine 1.72 H Glucose Level 247 H Magnesium Level 1.9 Potassium Level 3.9 Sodium Level 138 Bedside Glucose 208 149 Urine Bacteria FEW Urine Bilirubin NEGATIVE Urine Clarity CLEAR Urine Color LT. YELLOW Urine Epithelial Cells FEW Urine Glucose NEGATIVE Urine Hemoglobin NEGATIVE Urine Ketones NEGATIVE Urine Leukocyte Esterase 1+ H Urine Microscopic RBC 0-2 Urine Microscopic WBC 5-10 Urine Nitrite NEGATIVE Urine Specific [place] 1.010 Urine Total Protein NEGATIVE Urine Urobilinogen 0.2 E.U./dL Urine pH 5.5 Medications Medications Current Medications Acetaminophen (Tylenol Tab) 650 mg Q6H PRN PO PAIN AND OR ELEVATED TEMP Last administered on 07/08/16 13:40; Admin Dose 650 MG; Start 07/06/16 at 03:00 Ondansetron HCl (Zofran Inj) 4 mg Q4H PRN IV NAUSEA AND/OR VOMITING; Start at 03:00 Linagliptin (Tradjenta) 5 mg DAILY PO Last administered on 07/08/16 08:07; Admin Dose 5 MG; Start 07/06/16 at 09:00 Miscellaneous Information 1 ea NOTE XX ; Start 07/06/16 at 03:30 Glucose (Glutose) 15 gm Q15M PRN PO DECREASED GLUCOSE; Start 07/06/16 at 03:30 Glucose (Glutose) 22.5 gm Q15M PRN PO DECREASED GLUCOSE; Start 07/06/16 at 03: 30 Dextrose (D50w Syringe) 25 ml Q15M PRN IV DECREASED GLUCOSE; Start 07/06/16 at 03:30 Dextrose (D50w Syringe) 50 ml Q15M PRN IV DECREASED GLUCOSE; Start 07/06/16 at 03:30 Glucagon (Glucagen) 1 mg Q15M PRN IM DECREASED GLUCOSE; Start 07/06/16 at 03:30 Glucose (Glutose) 15 gm Q15M PRN BUCCAL DECREASED GLUCOSE; Start 07/06/16 at 03 :30 Pantoprazole (Protonix Tab) 40 mg DAILY@06 PO Last administered on 07/08/16 06 :02; Admin Dose 40 MG; Start 07/06/16 at 06:00 Diagnostic Test (Pha) (Accucheck) 1 ea 02 XX Last administered on 07/08/16 02: 34; Admin Dose 1 EA; Start 07/07/16 at 02:00 Lisinopril (Zestril) 20 mg BID PO Last administered on 07/08/16 20:45; Admin Dose 20 MG; Start 07/08/16 at 21:00 Metoprolol Succinate (Toprol Xl) 25 mg QHS PO ; Start 07/09/16 at 21:00 Acetaminophen/ Aspirin/Caffeine (Excedrin) 1 tab DAILY PRN PO PAIN; Start 07/08 at 10:00 Insulin Detemir (Levemir) 30 unit HS SC Last administered on 07/08/16 20:58; Admin Dose 30 UNIT; Start 07/08/16 at 21:00 JEFF COLLIER MD Jul 08, 2016 22:21
[2016-07-09] VITALS (10 sets, daily range): BP systolic 95–193; BP diastolic 52–81; PULSE 60–71; RESP 16–18
[2016-07-09] MEDS: ACCUCHECK AT 2AM (Patients on SS coverage) XX SCH (02:41)
[2016-07-09] MEDS: PANTOPRAZOLE (EC) 40 MG TAB PO SCH (05:23)
[2016-07-09] MEDS ORDERED: REPAGLINIDE 1 MG TAB PO SCH (07:30)
[2016-07-09] MEDS: LISINOPRIL 20 MG TAB PO SCH ×3 (09:00→21:07)
[2016-07-09] MEDS: LINAGLIPTIN 5 MG TABLET PO SCH ×2 (09:00→12:51)
[2016-07-09] MEDS: Insulin NOVOLOG SS MODERATE Algorithm (SS with meals and bedtime) SC SCH ×5 (09:25→21:00)
[2016-07-09 09:42] LABS: POTASSIUM 4.4 mmol/L (3.5-5.1)
[2016-07-09 09:45] LABS: CREATININE 1.38 mg/dl (0.44-1.00)
[2016-07-09 09:46] LABS: CALCIUM 9.1 mg/dl (8.4-10.2)
--- NOTE | 2016-07-09 10:48 | CONS ---
Date/Time of Note Date/Time of Note DATE: 07/09/16 TIME: 10:45 Assessment/Plan Assessment/Plan Problems: (1) Diastolic dysfunction Status: Chronic Comment: The patient is now on a beta-kam which is cardioselective and will not cause hypoglycemic non-awareness. I am in full concurrence with this therapeutic protocol (2) Diabetes type 2, uncontrolled Status: Chronic Comment: Adri be an appropriate place to use metformin-like agent if the patient can tolerate it. The patient does not tolerate this. She is on DPP4 drug in combination with Ambrocio Paglia night and insulin. We will try and get this fine-tuned she is not at goal yet. There is no active evidence of biliary disease or other bacterial infection Qualifiers: Diabetes mellitus complication status: with kidney complications Diabetes mellitus complication detail: with chronic kidney disease Diabetes mellitus intermediate frame tender insulin use: with intermediate frame tender use Chronic kidney disease stage: stage 3 (moderate) Qualified Code: E11.22 - Uncontrolled type 2 diabetes mellitus with stage 3 chronic kidney disease, with long-term current use of insulin (3) Renal insufficiency Status: Acute Comment: This appears to be acute on chronic kidney disease and there appears to be a prerenal component to it. We will go ahead and give a fluid bolus to help correct. Consultation Date/Type/Reason Admit Date/Time Jul 08, 2016 at 22:21 Initial Consult Date 07/08/16 Type of Consultation: Endocrine Reason for Consultation Diabetes mellitus type 2 out of control; prior history of GI intolerance metformin Referring Provider: ROHINI BERRIOS MD 24 HR Interval Summary Free Text/Dictation Patient reports she is still not feeling well and has not been feeling well for a week. Please see below for her complaints Constitutional: no complaints (Denies fevers chills or sweats) Detailed Summary Eyes: no complaints ENT: no complaints Respiratory: no complaints Cardiovascular: no complaints Gastrointestinal: nausea (Nausea persists.), pain, vomiting Genitourinary: no complaints Neurologic: headache (She reports a headache for a week) Exam/Review of Systems Vital Signs Vitals Vital Signs Date Time Temp Pulse Resp B/P Pulse Ox O2 Delivery O2 Flow Rate FiO2 07/09/16 08:29 98.1 68 16 156/69 94 07/09/16 04:00 Room Air Intake and Output 07/08/16 07/08/16 07/09/16 15:00 23:00 07:00 Intake Total 750 ml 500 ml Output Total 900 ml Balance 750 ml -400 ml Exam Constitutional: alert, oriented Neck: non-tender, supple Respiratory: clear to auscultation, normal air movement Cardiovascular: nl pulses, regular rate and rhythm Gastrointestinal: nl liver, spleen, non-tender, soft Results Result Diagram: 07/06/16 0601 07/09/16 0915 Results 24 hrs Laboratory Tests Test 07/08/16 11:29 07/08/16 15:51 07/08/16 16:56 07/08/16 17:00 Bedside Glucose 299 H 208 Anion Gap 15 Blood Urea Nitrogen 62 H Calcium Level 9.3 Carbon Dioxide Level 31 Chloride Level 96 L Creatinine 1.72 H Glucose Level 247 H Magnesium Level 1.9 Potassium Level 3.9 Sodium Level 138 Urine Bacteria FEW Urine Bilirubin NEGATIVE Urine Clarity CLEAR Urine Color LT. YELLOW Urine Epithelial Cells FEW Urine Glucose NEGATIVE Urine Hemoglobin NEGATIVE Urine Ketones NEGATIVE Urine Leukocyte Esterase 1+ H Urine Microscopic RBC 0-2 Urine Microscopic WBC 5-10 Urine Nitrite NEGATIVE Urine Specific [place] 1.010 Urine Total Protein NEGATIVE Urine Urobilinogen 0.2 E.U./dL Urine pH 5.5 Test 07/08/16 19:32 07/09/16 07:43 07/09/16 09:15 07/09/16 09:23 Bedside Glucose 149 416 *H 388 H Anion Gap 14 Blood Urea Nitrogen 55 H Calcium Level 9.1 Carbon Dioxide Level 30 Chloride Level 100 Creatinine 1.38 H Glucose Level 437 #*H Potassium Level 4.4 Sodium Level 140 Medications Medications Current Medications Acetaminophen (Tylenol Tab) 650 mg Q6H PRN PO PAIN AND OR ELEVATED TEMP Last administered on 07/08/16 22:39; Admin Dose 650 MG; Start 07/06/16 at 03:00 Ondansetron HCl (Zofran Inj) 4 mg Q4H PRN IV NAUSEA AND/OR VOMITING; Start at 03:00 Linagliptin (Tradjenta) 5 mg DAILY PO Last administered on 07/08/16 08:07; Admin Dose 5 MG; Start 07/06/16 at 09:00 Miscellaneous Information 1 ea NOTE XX ; Start 07/06/16 at 03:30 Glucose (Glutose) 15 gm Q15M PRN PO DECREASED GLUCOSE; Start 07/06/16 at 03:30 Glucose (Glutose) 22.5 gm Q15M PRN PO DECREASED GLUCOSE; Start 07/06/16 at 03: 30 Dextrose (D50w Syringe) 25 ml Q15M PRN IV DECREASED GLUCOSE; Start 07/06/16 at 03:30 Dextrose (D50w Syringe) 50 ml Q15M PRN IV DECREASED GLUCOSE; Start 07/06/16 at 03:30 Glucagon (Glucagen) 1 mg Q15M PRN IM DECREASED GLUCOSE; Start 07/06/16 at 03:30 Glucose (Glutose) 15 gm Q15M PRN BUCCAL DECREASED GLUCOSE; Start 07/06/16 at 03 :30 Pantoprazole (Protonix Tab) 40 mg DAILY@06 PO Last administered on 07/09/16 05 :23; Admin Dose 40 MG; Start 07/06/16 at 06:00 Diagnostic Test (Pha) (Accucheck) 1 ea 02 XX Last administered on 07/09/16 02: 41; Admin Dose 1 EA; Start 07/07/16 at 02:00 Lisinopril (Zestril) 20 mg BID PO Last administered on 07/08/16 20:45; Admin Dose 20 MG; Start 07/08/16 at 21:00 Metoprolol Succinate (Toprol Xl) 25 mg QHS PO ; Start 07/09/16 at 21:00 Acetaminophen/ Aspirin/Caffeine (Excedrin) 1 tab DAILY PRN PO PAIN; Start 07/08 at 10:00 Insulin Detemir (Levemir) 40 unit HS SC ; Start 07/09/16 at 21:00 Metformin HCl (Glucophage) 500 mg ONCE ONCE PO ; Start 07/09/16 at 11:00; Stop 07/09/16 at 11:01; Status DASHAWN EMERY MD Jul 09, 2016 10:48
[2016-07-09] MEDS ORDERED: LACTATED RINGER'S 500 ML IV ONE (11:00)
[2016-07-09] MEDS ORDERED: metFORMIN 500 MG TAB PO ONE (11:00)
[2016-07-09] MEDS: REPAGLINIDE 1 MG TAB PO SCH ×2 (12:50→17:56)
[2016-07-09] MEDS: ASA/ACETAMINOPHEN/CAFF TAB PO PRN (13:55)
[2016-07-09 14:12] LABS: THYROID STIMULATING HORMONE 0.484 MIU/L (0.465-4.680)
[2016-07-09] MEDS ORDERED: REGADENOSON 0.4 MG/5 ML SYG ONE (16:17)
--- NOTE | 2016-07-09 17:18 | CARRPT ---
DATE OF PROCEDURE: 07/09/2016 PROCEDURE: Lexiscan nuclear stress test. PATIENT HISTORY: This is a 71-year-old female with history of diabetes who presents with chest pain . Baseline ECG demonstrates sinus rhythm with frequent PACs, nonspecific ST segment abnormalities. Ba seline heart rate was 73, baseline blood pressure was 144/72. Lexiscan was administered as per prot ocol. Symptoms were nausea and flushing, which resolved. ECG CHANGES: T-wave flattening. Less than 0.[address] depression in aVL. ARRHYTHMIAS: None. SYMPTOMS: Flushing and nausea. Peak heart rate was 83, peak blood pressure was 154/61. ECG interpretation was nonischemic. The nuclear portion will be interpreted by our radiology colleagues. Dictated By: GAIL EARL/AUTUMN Conf#: [id number] DID#: [id number]
--- NOTE | 2016-07-09 17:31 | RADRPT ---
PROCEDURE: Lexiscan myocardial perfusion study CLINICAL INDICATION: 71 -year-old patient complaining of chest pain. TECHNIQUE: Lexiscan 0.4 mg intravenously separate acquisition gated myocardial perfusion SPECT usi ng Tc 99m Myoview 32.5 mCi intravenously at stress and Tc-99m Myoview, 10.0 mCi intravenously at res t was performed using the rest/stress sequence. Poststress Myoview SPECT images were obtained in th e supine position. COMPARISON: No prior studies. FINDINGS: Perfusion images reveal no evidence of perfusion defects. Lexiscan post stress gated SPECT images demonstrate no wall motion abnormalities. IMPRESSION: 1. No evidence of perfusion defects. 2. No wall motion abnormalities. 3. The left ventricle ejection fraction at stress is greater than 70%. A call report was made to Dr. Sahni at 05:29 p.m. on July 09, 2016. RPTAT: HH .Nena Dang MD, Date Time Electronically viewed and signed by .Nena Dang MD, on 07/09/2016 17:30 .L/
[2016-07-09] MEDS ORDERED: metFORMIN 500 MG TAB PO SCH (18:05)
--- NOTE | 2016-07-09 18:32 | CONS ---
Date/Time of Note Date/Time of Note DATE: 07/09/16 TIME: 18:30 Assessment/Plan Assessment/Plan Additional Assessment/Plan Chest pain with normal cardiac nuclear perfusion study 07/09/2016 Preserved ejection fraction Myalgias Hypertension Diabetes Obesity Acute kidney injury -Patient with normal cardiac nuclear perfusion study. Denies further chest pain or shortness of breath. Main complaint is lower extremity burning-like and aching sensation. Venous Dopplers pending. Consultation Date/Type/Reason Admit Date/Time Jul 08, 2016 at 22:21 Initial Consult Date 07/08/16 Type of Consultation: cv Referring Provider: ROHINI BERRIOS MD 24 HR Interval Summary Free Text/Dictation Denies chest pain, palpitations or shortness of breath. Complains of burning sensation in her feet Exam/Review of Systems Vital Signs Vitals Vital Signs Date Time Temp Pulse Resp B/P Pulse Ox O2 Delivery O2 Flow Rate FiO2 07/09/16 16:09 98.0 64 16 140/68 99 07/09/16 04:00 Room Air Intake and Output 07/08/16 07/08/16 07/09/16 15:00 23:00 07:00 Intake Total 750 ml 500 ml Output Total 900 ml Balance 750 ml -400 ml Exam No apparent distress Constitutional: alert, oriented Head: normocephalic Neck: supple Respiratory: clear to auscultation, normal air movement Cardiovascular: other (S1-S2 heard), regular rate and rhythm Gastrointestinal: bowel sounds, non-tender, soft Extremities: edema (Trace) Results Result Diagram: 07/06/16 0601 07/09/16 0915 Results 24 hrs Laboratory Tests Test 07/08/16 19:32 07/09/16 07:43 07/09/16 09:15 07/09/16 09:23 Bedside Glucose 149 416 *H 388 H Anion Gap 14 Blood Urea Nitrogen 55 H Calcium Level 9.1 Carbon Dioxide Level 30 Chloride Level 100 Creatinine 1.38 H Glucose Level 437 #*H Potassium Level 4.4 Sodium Level 140 Test 07/09/16 12:00 07/09/16 12:17 07/09/16 17:24 Hepatitis B Surface Antigen NEGATIVE Hepatitis C Antibody NEGATIVE Thyroid Stimulating Hormone (TSH) 0.484 Bedside Glucose 316 H 139 Medications Medications Current Medications Acetaminophen (Tylenol Tab) 650 mg Q6H PRN PO PAIN AND OR ELEVATED TEMP Last administered on 07/08/16 22:39; Admin Dose 650 MG; Start 07/06/16 at 03:00 Ondansetron HCl (Zofran Inj) 4 mg Q4H PRN IV NAUSEA AND/OR VOMITING; Start at 03:00 Linagliptin (Tradjenta) 5 mg DAILY PO Last administered on 07/09/16 12:51; Admin Dose 5 MG; Start 07/06/16 at 09:00 Miscellaneous Information 1 ea NOTE XX ; Start 07/06/16 at 03:30 Glucose (Glutose) 15 gm Q15M PRN PO DECREASED GLUCOSE; Start 07/06/16 at 03:30 Glucose (Glutose) 22.5 gm Q15M PRN PO DECREASED GLUCOSE; Start 07/06/16 at 03: 30 Dextrose (D50w Syringe) 25 ml Q15M PRN IV DECREASED GLUCOSE; Start 07/06/16 at 03:30 Dextrose (D50w Syringe) 50 ml Q15M PRN IV DECREASED GLUCOSE; Start 07/06/16 at 03:30 Glucagon (Glucagen) 1 mg Q15M PRN IM DECREASED GLUCOSE; Start 07/06/16 at 03:30 Glucose (Glutose) 15 gm Q15M PRN BUCCAL DECREASED GLUCOSE; Start 07/06/16 at 03 :30 Pantoprazole (Protonix Tab) 40 mg DAILY@06 PO Last administered on 07/09/16 05 :23; Admin Dose 40 MG; Start 07/06/16 at 06:00 Diagnostic Test (Pha) (Accucheck) 1 ea 02 XX Last administered on 07/09/16 02: 41; Admin Dose 1 EA; Start 07/07/16 at 02:00 Lisinopril (Zestril) 20 mg BID PO Last administered on 07/09/16 12:50; Admin Dose 20 MG; Start 07/08/16 at 21:00 Metoprolol Succinate (Toprol Xl) 25 mg QHS PO ; Start 07/09/16 at 21:00 Acetaminophen/ Aspirin/Caffeine (Excedrin) 1 tab DAILY PRN PO PAIN Last administered on 07/09/16 13:55; Admin Dose 1 TAB; Start 07/08/16 at 10:00 Insulin Detemir (Levemir) 40 unit HS SC ; Start 07/09/16 at 21:00 Solitario Sahni DO Jul 09, 2016 18:32
--- NOTE | 2016-07-09 18:49 | CONS ---
Date/Time of Note Date/Time of Note DATE: 07/09/16 TIME: 18:35 Assessment/Plan Assessment/Plan Chief Complaint/Hosp Course BS still running high Pt seen by Electrolog Operator Await endo consult & begin dc plans Problems: Additional Assessment/Plan Pt will need detailed instruction re her antidiabetic regimen which has been revamped, hoping that she's be ble to keep up with it. She only checks her BS once at home Await cardiac clearance for discharge. Consultation Date/Type/Reason Admit Date/Time Jul 08, 2016 at 22:21 Type of Consultation: Referring Provider: ROHINI BERRIOS MD 24 HR Interval Summary Free Text/Dictation Pt still c/o chest pain, seen by cardiology Final results of the [facility] pending Exam/Review of Systems Vital Signs Vitals Vital Signs Date Time Temp Pulse Resp B/P Pulse Ox O2 Delivery O2 Flow Rate FiO2 07/09/16 16:09 98.0 64 16 140/68 99 07/09/16 04:00 Room Air Intake and Output 07/08/16 07/08/16 07/09/16 15:00 23:00 07:00 Intake Total 750 ml 500 ml Output Total 900 ml Balance 750 ml -400 ml Exam Constitutional: alert, oriented, well developed Psych: nl mood/affect, no complaints Head: atraumatic, normocephalic Eyes: EOMI, PERRL, nl conjunctiva, nl lids, nl sclera ENMT: nl external ears & nose, nl lips & teeth, nl nasal mucosa & septum Neck: non-tender, supple Respiratory: clear to auscultation, normal air movement Cardiovascular: nl pulses, regular rate and rhythm Gastrointestinal: nl liver, spleen, non-tender, soft Musculoskeletal: nl extremities to inspection, nl gait and stance Extremities: normal pulses Neurological: TRANSITIONAL LIVING SPECIALIST II-XII intact, nl mental status, nl speech, nl strength Skin: nl turgor, No rash or lesions Additional Comments Pt seen by Endo, consult note reviewed Results BUN/Creat improved a bit tho BS still fluctuating Result Diagram: 07/06/16 0601 07/09/16 0915 Results 24 hrs Laboratory Tests Test 07/08/16 19:32 07/09/16 07:43 07/09/16 09:15 07/09/16 09:23 Bedside Glucose 149 416 *H 388 H Anion Gap 14 Blood Urea Nitrogen 55 H Calcium Level 9.1 Carbon Dioxide Level 30 Chloride Level 100 Creatinine 1.38 H Glucose Level 437 #*H Potassium Level 4.4 Sodium Level 140 Test 07/09/16 12:00 07/09/16 12:17 07/09/16 17:24 Hepatitis B Surface Antigen NEGATIVE Hepatitis C Antibody NEGATIVE Thyroid Stimulating Hormone (TSH) 0.484 Bedside Glucose 316 H 139 Medications Medications Current Medications Acetaminophen (Tylenol Tab) 650 mg Q6H PRN PO PAIN AND OR ELEVATED TEMP Last administered on 07/08/16 22:39; Admin Dose 650 MG; Start 07/06/16 at 03:00 Ondansetron HCl (Zofran Inj) 4 mg Q4H PRN IV NAUSEA AND/OR VOMITING; Start at 03:00 Linagliptin (Tradjenta) 5 mg DAILY PO Last administered on 07/09/16 12:51; Admin Dose 5 MG; Start 07/06/16 at 09:00 Miscellaneous Information 1 ea NOTE XX ; Start 07/06/16 at 03:30 Glucose (Glutose) 15 gm Q15M PRN PO DECREASED GLUCOSE; Start 07/06/16 at 03:30 Glucose (Glutose) 22.5 gm Q15M PRN PO DECREASED GLUCOSE; Start 07/06/16 at 03: 30 Dextrose (D50w Syringe) 25 ml Q15M PRN IV DECREASED GLUCOSE; Start 07/06/16 at 03:30 Dextrose (D50w Syringe) 50 ml Q15M PRN IV DECREASED GLUCOSE; Start 07/06/16 at 03:30 Glucagon (Glucagen) 1 mg Q15M PRN IM DECREASED GLUCOSE; Start 07/06/16 at 03:30 Glucose (Glutose) 15 gm Q15M PRN BUCCAL DECREASED GLUCOSE; Start 07/06/16 at 03 :30 Pantoprazole (Protonix Tab) 40 mg DAILY@06 PO Last administered on 07/09/16 05 :23; Admin Dose 40 MG; Start 07/06/16 at 06:00 Diagnostic Test (Pha) (Accucheck) 1 ea 02 XX Last administered on 07/09/16 02: 41; Admin Dose 1 EA; Start 07/07/16 at 02:00 Lisinopril (Zestril) 20 mg BID PO Last administered on 07/09/16 12:50; Admin Dose 20 MG; Start 07/08/16 at 21:00 Metoprolol Succinate (Toprol Xl) 25 mg QHS PO ; Start 07/09/16 at 21:00 Acetaminophen/ Aspirin/Caffeine (Excedrin) 1 tab DAILY PRN PO PAIN Last administered on 07/09/16 13:55; Admin Dose 1 TAB; Start 07/08/16 at 10:00 Insulin Detemir (Levemir) 40 unit HS SC ; Start 07/09/16 at 21:00 Aspirin (Aspirin) 81 mg DAILY PO ; Start 07/10/16 at 09:00; Status ROHINI LORENZANA MD Jul 09, 2016 18:45
[2016-07-09] MEDS ORDERED: HEPARIN 1000 UNITS/ML 10 ML INJ IV PRN ×2 (20:30)
[2016-07-09] MEDS ORDERED: hydrALAzine 20 MG INJ IV PRN (20:30)
[2016-07-09] MEDS ORDERED: HEPARIN 25000 UNITS/250 ML 250 ML IV SCH (20:30)
[2016-07-09] MEDS ORDERED: HEPARIN 1000 UNITS/ML 10 ML INJ IV ONE (20:30)
[2016-07-09] MEDS ORDERED: INSULIN DETEMIR [LEVEMIR] 3ML CART SC SCH (21:00)
[2016-07-09] MEDS ORDERED: METOPROLOL (XL) 25 MG TAB PO SCH (21:00)
--- NOTE | 2016-07-09 21:04 | RADRPT ---
PROCEDURE: US Lower extremity Venous. CLINICAL INDICATION: Leg pain and edema. TECHNIQUE: Multiple sonographic images of the bilateral lower extremity deep venous system was obt ained utilizing grayscale, color-flow, compressive sonography and doppler imaging with augmentation. The images were reviewed on a PACS workstation. COMPARISON: None. FINDINGS: There is normal compressibility and flow within the bilateral common femoral, deep femoral, superfic ial femoral, posterior tibial, and popliteal veins. Noncompressible occlusive intraluminal thrombus within the peroneal veins bilaterally. IMPRESSION: Occlusive intraluminal thrombus within the peroneal veins bilaterally. No other evidence of DVT. RPTAT:AAJJ Physician Luca Date Time Electronically viewed and signed by Physician Luca on 07/09/2016 21:04 TIN/
[2016-07-09] MEDS: METOPROLOL 25 MG TAB PO SCH (21:08)
[2016-07-09] MEDS: APIXABAN 5 MG TABLET PO SCH (21:13)
[2016-07-09 21:48] LABS: BASOPHILS % 0.2 % (0.0-2.0); EOSINOPHILS # 0.1 10^3/ul (0.0-0.5); EOSINOPHILS % 0.9 % (0.0-7.0); HEMATOCRIT 38.7 % (37.0-47.0); LYMPHOCYTES # 4.5 10^3/ul (0.8-2.9); LYMPHOCYTES % 36.6 % (15.0-51.0); MEAN CORPUSCULAR HEMOGLOBIN 28.4 pg (29.0-33.0); MEAN CORPUSCULAR HGB CONC 33.7 g/dl (32.0-37.0); MEAN CORPUSCULAR VOLUME 84.3 fl (82.0-101.0); MONOCYTE # 0.9 10^3/ul (0.3-0.9); MONOCYTES % 7.3 % (0.0-11.0); NEUTROPHIL # 6.7 10^3/ul (1.6-7.5); PLATELET COUNT 222 10^3/UL (140-440); RED BLOOD COUNT 4.59 10^6/ul (4.20-5.40); RED CELL DISTRIBUTION WIDTH 13.2 % (11.5-14.5); UNCORRECTED WBC 12.2 10^3/ul (4.8-10.8); WHITE BLOOD COUNT 12.2 10^3/ul (4.8-10.8)
[2016-07-09 21:53] LABS: CONDITION 1
[2016-07-09 21:58] LABS: PARTIAL THROMBOPLASTIN TIME 25.6 Sec (25.0-35.0); PROTIME 13.2 Sec (12.2-14.2)
[2016-07-09 23:23] LABS: COLLECTION PERIOD 24 hrs
[2016-07-10] VITALS (9 sets, daily range): BP systolic 107–146; BP diastolic 55–67; PULSE 58–61; RESP 16–19
[2016-07-10] MEDS: ACCUCHECK AT 2AM (Patients on SS coverage) XX SCH (02:00)
[2016-07-10] MEDS: ACETAMINOPHEN 325 MG TAB PO PRN ×2 (02:23→14:59)
[2016-07-10] MEDS: PANTOPRAZOLE (EC) 40 MG TAB PO SCH (06:25)
[2016-07-10 08:12] LABS: POTASSIUM 3.6 mmol/L (3.5-5.1)
[2016-07-10 08:14] LABS: CREATININE 1.16 mg/dl (0.44-1.00)
[2016-07-10 08:15] LABS: CALCIUM 8.9 mg/dl (8.4-10.2)
[2016-07-10] MEDS: REPAGLINIDE 1 MG TAB PO SCH ×3 (08:32→17:51)
[2016-07-10] MEDS: LINAGLIPTIN 5 MG TABLET PO SCH (08:33)
[2016-07-10] MEDS: APIXABAN 5 MG TABLET PO SCH (08:34)
[2016-07-10] MEDS: Insulin NOVOLOG SS MODERATE Algorithm (SS with meals and bedtime) SC SCH ×3 (08:34→18:01)
[2016-07-10] MEDS: METOPROLOL 25 MG TAB PO SCH (08:35)
[2016-07-10] MEDS: LISINOPRIL 20 MG TAB PO SCH (08:35)
[2016-07-10] MEDS: ASA/ACETAMINOPHEN/CAFF TAB PO PRN (08:35)
[2016-07-10] MEDS ORDERED: ASPIRIN 81 MG TAB PO SCH (09:00)
[2016-07-10 09:42] LABS: SCRET 1.16 mg/dl (0.44-1.00)
--- NOTE | 2016-07-10 14:26 | CONS ---
Date/Time of Note Date/Time of Note DATE: 07/10/16 TIME: 14:24 Assessment/Plan Assessment/Plan Additional Assessment/Plan Chest pain with normal cardiac nuclear perfusion study 07/09/2016 Preserved ejection fraction Bilateral lower extremity DVTs Myalgias Hypertension Diabetes Obesity Acute kidney injury -Venous ultrasound with bilateral lower extremity DVTs. Patient started on eliquis. Dosing regiment was explained in detail to patient and daughter at bedside of 10 mg twice a day for an additional 6 days and then 5 mg twice a day for a minimum of 6 months. Prescription was left in the chart and case management consultation was requested to confirm insurance approval. Aspirin has been stopped. Consultation Date/Type/Reason Admit Date/Time Jul 08, 2016 at 22:21 Initial Consult Date 07/08/16 Type of Consultation: cv Referring Provider: ROHINI BERRIOS MD 24 HR Interval Summary Free Text/Dictation Patient denies chest pain, shortness of breath. Still with lower extremity discomfort Exam/Review of Systems Vital Signs Vitals Vital Signs Date Time Temp Pulse Resp B/P Pulse Ox O2 Delivery O2 Flow Rate FiO2 07/10/16 12:30 58 07/10/16 11:59 98.6 19 146/67 99 07/09/16 04:00 Room Air Intake and Output 07/09/16 07/09/16 07/10/16 15:00 23:00 07:00 Intake Total 680 ml Output Total 2200 ml Balance -1520 ml Exam No apparent distress Constitutional: alert, oriented Head: normocephalic Neck: supple Respiratory: other (Coarse breath sounds bilaterally, no wheezing) Cardiovascular: other (S1-S2 heard), regular rate and rhythm Gastrointestinal: bowel sounds, non-tender, soft Extremities: edema (Trace) Results Result Diagram: 07/09/16211807/10/16 0720 Results 24 hrs Laboratory Tests Test 07/09/16 17:23 07/09/16 17:24 07/09/16 21:16 07/09/16 21:19 Creatinine Clearance 63.0 L Urine Collection Duration 24 Urine Creatinine Timed 24 Urine Random Creatinine 46.78 Urine Total Protein 24 Hour Urine Total Volume (Protein) Urine Total Volume 24 Hours 2250 Bedside Glucose 139 143 Activated Partial Thromboplast Time 25.6 Basophils # 0.0 Basophils % 0.2 Blood Morphology Comment Eosinophils # 0.1 Eosinophils % 0.9 Hematocrit 38.7 Hemoglobin 13.0 INR International Normalized Ratio 1.00 Lymphocytes # 4.5 H Lymphocytes % 36.6 Mean Corpuscular Hemoglobin 28.4 L Mean Corpuscular Hemoglobin Concent 33.7 Mean Corpuscular Volume 84.3 Mean Platelet Volume 10.0 Monocytes # 0.9 Monocytes % 7.3 Neutrophils # 6.7 Neutrophils % 55.0 Nucleated Red Blood Cells # 0.0 Nucleated Red Blood Cells % 0.0 Platelet Count 222 Prothrombin Time 13.2 Prothrombin Time Ratio 1.0 Red Blood Count 4.59 Red Cell Distribution Width 13.2 White Blood Count 12.2 H Test 07/09/16 22:44 07/10/16 02:18 07/10/16 06:24 07/10/16 07:20 Bedside Glucose 157 239 H 240 H Anion Gap 16 Blood Urea Nitrogen 39 #H Calcium Level 8.9 Carbon Dioxide Level 31 Chloride Level 102 Creatinine 1.16 H Glucose Level 223 #H Potassium Level 3.6 Sodium Level 145 H Test 07/10/16 07:43 07/10/16 11:59 Bedside Glucose 209 231 H Medications Medications Current Medications Acetaminophen (Tylenol Tab) 650 mg Q6H PRN PO PAIN AND OR ELEVATED TEMP Last administered on 07/10/16 02:23; Admin Dose 650 MG; Start 07/06/16 at 03:00 Ondansetron HCl (Zofran Inj) 4 mg Q4H PRN IV NAUSEA AND/OR VOMITING Last administered on 07/09/16 21:20; Admin Dose 4 MG; Start 07/06/16 at 03:00 Linagliptin (Tradjenta) 5 mg DAILY PO Last administered on 07/10/16 08:33; Admin Dose 5 MG; Start 07/06/16 at 09:00 Miscellaneous Information 1 ea NOTE XX ; Start 07/06/16 at 03:30 Glucose (Glutose) 15 gm Q15M PRN PO DECREASED GLUCOSE; Start 07/06/16 at 03:30 Glucose (Glutose) 22.5 gm Q15M PRN PO DECREASED GLUCOSE; Start 07/06/16 at 03: 30 Dextrose (D50w Syringe) 25 ml Q15M PRN IV DECREASED GLUCOSE; Start 07/06/16 at 03:30 Dextrose (D50w Syringe) 50 ml Q15M PRN IV DECREASED GLUCOSE; Start 07/06/16 at 03:30 Glucagon (Glucagen) 1 mg Q15M PRN IM DECREASED GLUCOSE; Start 07/06/16 at 03:30 Glucose (Glutose) 15 gm Q15M PRN BUCCAL DECREASED GLUCOSE; Start 07/06/16 at 03 :30 Pantoprazole (Protonix Tab) 40 mg DAILY@06 PO Last administered on 07/10/16 06 :25; Admin Dose 40 MG; Start 07/06/16 at 06:00 Diagnostic Test (Pha) (Accucheck) 1 ea 02 XX Last administered on 07/09/16 02: 41; Admin Dose 1 EA; Start 07/07/16 at 02:00 Lisinopril (Zestril) 20 mg BID PO Last administered on 07/10/16 08:35; Admin Dose 20 MG; Start 07/08/16 at 21:00 Acetaminophen/ Aspirin/Caffeine (Excedrin) 1 tab DAILY PRN PO PAIN Last administered on 07/10/16 08:35; Admin Dose 1 TAB; Start 07/08/16 at 10:00 Insulin Detemir (Levemir) 40 unit HS SC Last administered on 07/09/16 22:51; Admin Dose 40 UNIT; Start 07/09/16 at 21:00 Metoprolol Tartrate (Lopressor) 25 mg BID PO Last administered on 07/10/16 08: 35; Admin Dose 25 MG; Start 07/09/16 at 21:00 Hydralazine HCl (Apresoline) 25 mg TID PO Last administered on 07/10/16 12:25 ; Admin Dose 25 MG; Start 07/09/16 at 21:00 Hydralazine HCl (Apresoline) 10 mg Q6H PRN IV SBP > 160; Start 07/09/16 at 20: 30 Apixaban (Eliquis) 10 mg BID PO Last administered on 07/10/16 08:34; Admin Dose 10 MG; Start 07/09/16 at 21:00 Insulin Human NPH (Humulin N) 10 unit HS SC ; Start 07/10/16 at 21:00 Solitario Sahni DO Jul 10, 2016 14:26
[2016-07-10] MEDS ORDERED: NPH, HUMAN INSULIN ISOPHANE 3ML VIAL SC SCH (21:00)
== END 2016-07-10 20:28 | disposition home or self-care (01) | DRG 313 ==
LOC: E/R 20:20 → INTOOBSV 22:35 → MS4 22:35 → OBSVTOIN 07-08 22:21
PROVIDERS: ADMIT Internal Medicine Nephrology; ATTEND Internal Medicine Nephrology
DX: R07.9 Chest pain, unspecified (principal); N17.9 Acute kidney failure, unspecified; E11.22 Type 2 diabetes mellitus with diabetic chronic kidney disease; E11.65 Type 2 diabetes mellitus with hyperglycemia; I82.4Z3 Acute embolism and thrombosis of unspecified deep veins of distal lower extremity, bilateral; Z79.4 Long term (current) use of insulin; M79.1 Myalgia; I12.9 Hypertensive chronic kidney disease with stage 1 through stage 4 chronic kidney disease, or unspecified chronic kidney disease; N18.3 Chronic kidney disease, stage 3 (moderate)
CPT/HCPCS: 36415; 71010; 76705; 78452; 80048; 80053; 80061; 81001; 81003; 82550; 82553; 82575; 82962; 83036; 83735; 84100; 84156; 84443; 84484; 85025; 85610; 85730; 86803; 87340; 93005; 93017; 93306; 93923; 99217; G0378; A9500; A9505; J1815; J2405; J2785; J7120

== ENCOUNTER 2016-08-11 10:11 | Day surgery (SDC) | payer MEDICARE, OTHER ==
[~2016-08-11] VITALS: Ht 154.9 cm; Wt 77.4 kg
[~2016-08-11 10:11] MED LIST changes: +CEFD300C2 PO; -HYD25 PO; +METO100T13 PO; +SITA100T8 PO
[2016-08-11 12:00] VITALS: Ht 154.9 cm; Wt 77.4 kg
[2016-08-11] MEDS ORDERED: METF500T4 PO (12:13)
[2016-08-11] MEDS ORDERED: AMLO2.5T78 PO (12:13)
[2016-08-11] MEDS ORDERED: RANI150T9 PO (12:13)
[2016-08-11] MEDS ORDERED: HYD25 PO (12:13)
[2016-08-11] MEDS ORDERED: FENTAnyl 50 MCG/ML VIAL ONE (12:21)
[2016-08-11] MEDS ORDERED: PROPOFOL 20 ML ONE (12:21)
[2016-08-11 12:29] VITALS: BP 195/78; PULSE 51; RESP 12
[2016-08-11] MEDS ORDERED: hydrALAzine 20 MG INJ ONE (12:33)
[2016-08-11 13:00] VITALS: BP 110/53; PULSE 58; RESP 18
[2016-08-11 13:20] VITALS: BP 105/52; PULSE 54; RESP 18
--- NOTE | 2016-08-11 14:22 | GILP ---
DATE OF PROCEDURE: 08/11/2016 NAME OF PROCEDURE: Esophagogastroduodenoscopy and biopsy. SURGEON: Tucker Duran MD PREOPERATIVE DIAGNOSIS: Abdominal pain, loss of appetite and weight loss. POSTOPERATIVE DIAGNOSES: 1. Hiatal hernia. 2. Gastroesophageal reflux disease. 3. Gastritis with erosions. 4. Gastric mucosal biopsies were taken for Helicobacter pylori test. INDICATION FOR THE PROCEDURE: Ms. Marcie Charles is a 71-year-old female patient who had upper ab dominal pain, loss of appetite and weight loss. The patient was scheduled for endoscopic examinatio n for further evaluation. The procedure and possible complications are well explained to the patient, she understood and conse nted to the procedure. DESCRIPTION OF PROCEDURE: Under the influence of anesthesia, the gastroscope was carefully introduc ed into the esophagus and under direct vision, it was advanced to the stomach and through the pyloru s into the duodenal bulb and descending duodenum. FINDINGS: ESOPHAGUS: The patient had a small hiatal hernia and gastroesophageal reflux disease. STOMACH: She had gastritis with erosions. Gastric mucosal biopsies were taken for H. pylori test. DUODENUM: Normal. She tolerated the procedure very well and there was no complication from the procedure. At the end of the procedure, she was awake with stable vital signs and she was discharged home to the care of h er family. IMPRESSION: 1. Small hiatal hernia. 2. Gastroesophageal reflux disease. 3. Gastritis with erosions. 4. Gastric mucosal biopsies were taken for Helicobacter pylori test. PLAN: 1. Continue omeprazole and Zantac. 2. Await H. pylori test report. Dictated By: TUCKER SHELL/AUTUMN Conf#: [id number] DID#: [id number] CC: TUCKER DURAN MD;*EndCC*
== END 2016-08-11 13:23 | disposition home or self-care (01) ==
LOC: GIL 10:11
PROVIDERS: ATTEND Internal Medicine Gastroenterology
DX: K44.9 Diaphragmatic hernia without obstruction or gangrene (principal); K21.9 Gastro-esophageal reflux disease without esophagitis; K29.60 Other gastritis without bleeding; I10 Essential (primary) hypertension; E11.9 Type 2 diabetes mellitus without complications
CPT/HCPCS: 43239; 82962; 87081; J0360; J3010

== ENCOUNTER 2018-12-02 08:52 | Emergency (ER) | payer MEDICARE, OTHER ==
[~2018-12-02] VITALS: Ht 149.9 cm; Wt 69.0 kg
[~2018-12-02 08:52] MED LIST changes: +AMLO2.5T78 PO; -CEFD300C2 PO; +HYDR25TA6 PO; +METF-849 PO; -METO100T13 PO; +RANI150T35 PO; -SITA100T8 PO
[2018-12-02 08:57] VITALS: Ht 149.9 cm; Wt 69.0 kg
[2018-12-02] MEDS ORDERED: HYDROmorphONE 1 MG/ML SYG IV STA (09:18)
[2018-12-02] MEDS ORDERED: ONDANSETRON 4 MG INJ IV STA (09:18)
[2018-12-02] MEDS ORDERED: SOD CHLORIDE 0.9% 1,000 ML IV STA (09:18)
[2018-12-02] MEDS ORDERED: KETOROLAC 30 MG INJ IV STA (09:18)
[2018-12-02] MEDS ORDERED: NAPR-985 PO (11:00)
--- NOTE | 2018-12-02 11:22 | ERD ---
ER Documentation Chief Complaint Chief Complaint pt is bib family with c/o bilatt hip and leg pain x 2 wks, ambu with cane HPI Is a very pleasant 73-year-old female is brought into the emergency department by her daughter complaining of bilateral hip pain for the past 2 weeks. The patient normally ambulates with a cane. They have seen her primary care physician and been placed on anti-inflammatories. Daughter stated however she was concerned just yesterday the patient had a mechanical fall and landed on her left hip. She has been able to ambulate since then. Contrary to the triage note she is not complaining of leg pain or calf tenderness. She has no shortness of breath. She did not hit her head or lose consciousness denies a headache. ROS All systems reviewed and are negative except as per history of present illness. Medications Home Meds Active Scripts Naproxen* (Naprosyn*) 500 Mg Tablet, 500 MG PO BID PRN for PAIN AND/OR INFLAMMATION, #30 TAB Prov:AMARA FELIPE MD 12/02/18 Reported Medications Ranitidine Hcl* (Zantac*) 150 Mg Tablet, 150 MG PO HS, #30 TAB 08/11/16 Amlodipine Besylate* (Amlodipine Besylate*) 2.5 Mg Tablet, 2.5 MG PO DAILY, #30 TAB 08/11/16 Hydrochlorothiazide* (Hydrochlorothiazide*) 25 Mg Tab, 25 MG PO DAILY, #30 TAB 08/11/16 Metformin* (Glucophage*) 500 Mg Tab, 500 MG PO WITH BREAKFAST, #30 TAB 08/11/16 [[id number]] No Conflict Check, 25 SC BID 09/05/14 Omeprazole* (Omeprazole*) 20 Mg Capsule.dr, 20 MG PO DAILY 03/30/13 Lisinopril* (Prinivil*) 40 Mg Tablet, 40 MG PO BID 03/30/13 Allergies Allergies: Coded Allergies: vancomycin (Verified Allergy, Intermediate, 08/11/16) rashes codeine (Verified Allergy, Unknown, 07/06/16) Uncoded Allergies: PENICILLIN (Allergy, Unknown, 12/02/18) PMhx/Soc History of Surgery: Yes (hysterectomy, tonsillectomy) Anesthesia Reaction: No Hx Neurological Disorder: No (stroke 2018) Hx Respiratory Disorders: No Hx Cardiac Disorders: Yes (htn) Hx Psychiatric Problems: No Hx Miscellaneous Medical Probl: Yes (high cholesterol) Hx Alcohol Use: No Hx Substance Use: No Hx Tobacco Use: No Smoking Status: Never smoker Physical Exam Vitals Vital Signs Date Temp Pulse Resp B/P (MAP) Pulse Ox O2 O2 Flow FiO2 Time Delivery Rate 12/02/18 98.3 75 16 217/94 99 08:57 (135) Physical Exam Constitutional:Well-developed. Well-nourished. HEENT:Normocephalic. Atraumatic.Pupils were equal round reactive to light. Moist mucous membranes.No tonsillar exudates. Neck: No nuchal rigidity. No lymphadenopathy. No posterior cervical spine tenderness or step-offs. Respiratory: Not using accessory muscles of respiration.Lungs were clear to auscultation bilaterally. No rhonchi. No rales. No wheezing. Cardiovascular: Regular rate regular rhythm.No murmurs. No rubs were appreciated.S1, S2 normal. Distal pulses are palpable 2+ bilaterally. GI: Abdomen was soft. Nontender. Non Distended. No pulsatile abdominal masses or bruits. No rebound. No guarding. Bowel sounds were present and normal. Muscle skeletal: Full range of motion of both the upper and lower extremities bilaterally.Normal muscle tone.No assymetrical calf tenderness or swelling. Lower extremities are of equal length and symmetrical with no internal or external rotation Skin: No petechia, no purpura. No lesions on the palms or the soles of the feet. No maculopapular rash. NEURO: Patient was alert, awake, orientated x3.No facial droop. Gait observed and normal with no ataxia.Speech had regular rate and rhythm. No focal neurological deficits. Result Diagram: 12/02/1836 12/02/18 0936 Results 24 hrs Laboratory Tests Test 12/02/18 09:36 12/02/18 10:03 White Blood Count 7.1 10^3/ul Red Blood Count 4.64 10^6/ul Hemoglobin 12.8 g/dl Hematocrit 38.8 % Mean Corpuscular Volume 83.6 fl Mean Corpuscular Hemoglobin 27.6 pg Mean Corpuscular Hemoglobin Concent 33.0 g/dl Red Cell Distribution Width 13.7 % Platelet Count 242 10^3/UL Mean Platelet Volume 10.8 fl Immature Granulocytes % 0.100 % Neutrophils % 54.3 % Lymphocytes % 37.2 % Monocytes % 6.3 % Eosinophils % 1.4 % Basophils % 0.7 % Nucleated Red Blood Cells % 0.0 /100WBC Immature Granulocytes # 0.010 10^3/ul Neutrophils # 3.9 10^3/ul Lymphocytes # 2.7 10^3/ul Monocytes # 0.5 10^3/ul Eosinophils # 0.1 10^3/ul Basophils # 0.1 10^3/ul Nucleated Red Blood Cells # 0.0 10^3/ul Prothrombin Time 11.8 Sec Prothrombin Time Ratio 0.9 INR International Normalized Ratio 0.86 Activated Partial Thromboplast Time 24.2 Sec Sodium Level 145 mmol/L Potassium Level 3.6 mmol/L Chloride Level 105 mmol/L Carbon Dioxide Level 30 mmol/L Anion Gap 10 Blood Urea Nitrogen 19 mg/dl Creatinine 0.65 mg/dl Est Glomerular Filtrat Rate mL/min mL/min Glucose Level 83 mg/dl Calcium Level 9.5 mg/dl Total Bilirubin 0.7 mg/dl Direct Bilirubin 0.00 mg/dl Indirect Bilirubin 0.7 mg/dl Aspartate Amino Transf (AST/SGOT) 24 IU/L Alanine Aminotransferase (ALT/SGPT) 27 IU/L Alkaline Phosphatase 74 IU/L Troponin I < 0.012 ng/ml Total Protein 7.6 g/dl Albumin 4.3 g/dl Globulin 3.30 g/dl Albumin/Globulin Ratio 1.30 Urine Color STRAW Urine Clarity CLEAR Urine pH 8.0 Urine Specific [place] 1.005 Urine Ketones NEGATIVE mg/dL Urine Nitrite NEGATIVE mg/dL Urine Bilirubin NEGATIVE mg/dL Urine Urobilinogen NEGATIVE mg/dL Urine Leukocyte Esterase NEGATIVE Prakash/ul Urine Hemoglobin NEGATIVE mg/dL Urine Glucose NEGATIVE mg/dL Urine Total Protein NEGATIVE mg/dl Current Medications Medications Dose Sig/Luciano Start Time Status Last (Trade) Ordered Route PRN Stop Time Admin Dose Reason Admin Sodium 1,000 ml @ Q1H STAT 12/02/18 DC 12/02/18 Chloride 1,000 mls/hr IV 09:18 09:57 12/02/18 10:17 0.5 mg ONCE STAT 12/02/18 DC 12/02/18 Hydromorphone IV 09:18 09:57 HCl 12/02/18 09:21 (Dilaudid) Ondansetron 4 mg ONCE STAT 12/02/18 DC 12/02/18 HCl (Zofran IV 09:18 09:56 Inj) 12/02/18 09:21 Ketorolac 30 mg ONCE STAT 12/02/18 DC 12/02/18 Tromethamine IV 09:18 09:57 (Toradol) 12/02/18 09:21 Procedures/MDM This is a very pleasant 73-year-old female presented to the emergency department with bilateral hip pain. The patient did have a mechanical fall that occurred yesterday. She did not hit her head or lose consciousness. CT scan of the pelvis was ordered and reviewed by myself and there is no obvious fracture. The patient did have degenerative disc disease and I did feel her symptoms could be exacerbated by radiculopathy. She received IV Toradol in the emergency department. She had no severe electrolyte abnormalities. I obtained a 12-lead EKG tracing to rule out for atypical myocardial infarction 12 Lead EKG tracing ordered and reviewed by myself showed: Normal sinus rhythm of 66 bpm and no arrhythmia. MS interval normal. QRS duration normal. No ST segment elevation. Left axis deviation with PVCs No ST segment depression. No changes consistent with acute ischemia. The patient no evidence of urinary tract infection. The patient's daughter was at bedside. They very good outpatient follow-up. They stated that they will see their primary care physician for further definitive treatment. The patient was discharged home in fair condition. They were instructed to return to the emergency department at any time if there was any worsening of their condition. The patient stated they would follow up with their PCP in the next 24-48 hours to initiate a suitable medication regimen under the care of their PCP as well as to allow their PCP to monitor any drug reactions. The patient was discharged home with prescriptions after they gave informed consent to the new medication. They were also fully informed by myself on the adverse effects and adverse drug interactions in order to provide adequate safeguards to prevent possible adverse reactions to medications. Departure Diagnosis: Primary Impression: Arthralgia Joint pain location: hip Laterality: bilateral Qualified Codes: M25.551 - Pain in right hip; M25.552 - Pain in left hip Additional Impression: Degenerative disc disease, lumbar Condition: Fair Patient Instructions: Arthralgia Referrals: JOSEPH WEBSTER MD (PCP) AMARA FELIPE MD Dec 02, 2018 11:22
[2018-12-02 11:58] VITALS: BP 133/59; PULSE 68; RESP 16
== END 2018-12-02 12:03 | disposition home or self-care (01) ==
LOC: E/R 08:52
DX: M25.552 Pain in left hip (principal); I10 Essential (primary) hypertension; M51.36 Other intervertebral disc degeneration, lumbar region; M79.604 Pain in right leg; E11.9 Type 2 diabetes mellitus without complications; Z86.73 Personal history of transient ischemic attack (TIA), and cerebral infarction without residual deficits; Z79.84 Long term (current) use of oral hypoglycemic drugs
CPT/HCPCS: 72192; 80053; 81003; 84484; 85025; 85610; 85730; 87086; 96374; 96375; 99285; J1170; J1885; J2405; J7030

== ENCOUNTER 2018-12-14 13:36 | Emergency (ER) | payer OTHER ==
[~2018-12-14] VITALS: Ht 165.1 cm; Wt 77.3 kg
[~2018-12-14 13:36] MED LIST changes: +NAPR-985 PO
[2018-12-14 13:42] VITALS: Ht 165.1 cm; Wt 77.3 kg
[2018-12-14] MEDS ORDERED: DEXTROSE 50% 50 ML SYRINGE ONE (13:46)
[2018-12-14] MEDS ORDERED: DEXTROSE 50% 50 ML SYRINGE IV ONE ×2 (14:00)
--- NOTE | 2018-12-14 14:02 | ERD ---
ER Documentation Chief Complaint Chief Complaint weak, ALOC, 'convulsing' in car [employer]: return fr trip [place]. HPI 73-year-old female history of diabetes on insulin and oral hypoglycemic, history of stroke, not on anticoagulation resenting with altered mental status. Patient was in the backseat of a car driving for several hours. Around 830 this morning daughter noticed patient was sleeping in the backseat. Around 30 minutes ago on car arrived to final destination daughter tried to wake up patient more strenuously and patient was not arousing. No recent infectious symptoms. Baseline neurological status is normal. ROS All systems reviewed and are negative except as per history of present illness. Medications Home Meds Active Scripts Naproxen* (Naprosyn*) 500 Mg Tablet, 500 MG PO BID PRN for PAIN AND/OR INFLAMMATION, #30 TAB Prov:AMARA FELIPE MD 12/02/18 Reported Medications Ranitidine Hcl* (Zantac*) 150 Mg Tablet, 150 MG PO HS, #30 TAB 08/11/16 Amlodipine Besylate* (Amlodipine Besylate*) 2.5 Mg Tablet, 2.5 MG PO DAILY, #30 TAB 08/11/16 Hydrochlorothiazide* (Hydrochlorothiazide*) 25 Mg Tab, 25 MG PO DAILY, #30 TAB 08/11/16 Metformin* (Glucophage*) 500 Mg Tab, 500 MG PO WITH BREAKFAST, #30 TAB 08/11/16 [/30] No Conflict Check, 25 SC BID 09/05/14 Omeprazole* (Omeprazole*) 20 Mg Capsule.dr, 20 MG PO DAILY 03/30/13 Lisinopril* (Prinivil*) 40 Mg Tablet, 40 MG PO BID 03/30/13 Allergies Allergies: Coded Allergies: vancomycin (Verified Allergy, Intermediate, 08/11/16) rashes codeine (Verified Allergy, Unknown, 07/06/16) Uncoded Allergies: PENICILLIN (Allergy, Unknown, 12/02/18) PMhx/Soc History of Surgery: Yes (hysterectomy, tonsillectomy) Anesthesia Reaction: No Hx Neurological Disorder: No (stroke 2018) Hx Respiratory Disorders: No Hx Cardiac Disorders: Yes (htn) Hx Psychiatric Problems: No Hx Miscellaneous Medical Probl: Yes (high cholesterol) Hx Alcohol Use: No Hx Substance Use: No Hx Tobacco Use: No Physical Exam Vitals Vital Signs Date Temp Pulse Resp B/P (MAP) Pulse Ox O2 O2 Flow FiO2 Time Delivery Rate 12/14/18 Nasal 2 13:52 Cannula 12/14/18 99.0 85 20 154/74 93 13:42 (100) Physical Exam Const: Moderate acute distress Head: Atraumatic Eyes: Normal Conjunctiva ENT: Normal External Ears, Nose and Mouth. Neck: Full range of motion. No meningismus. Resp: Clear to auscultation bilaterally Cardio: Regular rate and rhythm, no murmurs Abd: Soft, non tender, non distended. Normal bowel sounds Skin: No petechiae or rashes Back: No midline or flank tenderness Ext: No cyanosis, or edema Neuro Exam Mental status: Following some commands but not responding verbally Cranial nerves: Noncompliance with this portion of exam Motor: 4+ UE and LE, flexors and extensors symmetric Sensation: Unable to assess due to mental status Cerebellar: Unable to assess due to mental status Gait: Unable to assess due to mental status Tone: normal bulk and tone in upper and lower extremities. No atrophy noted. Result Diagram: 12/14/18 1346 12/14/18 1346 Results 24 hrs Laboratory Tests Test 12/14/18 13:46 12/14/18 14:33 12/14/18 15:24 White Blood Count 11.9 10^3/ul Red Blood Count 5.03 10^6/ul Hemoglobin 13.9 g/dl Hematocrit 42.0 % Mean Corpuscular Volume 83.5 fl Mean Corpuscular Hemoglobin 27.6 pg Mean Corpuscular 33.1 g/dl Hemoglobin Concent Red Cell Distribution Width 13.6 % Platelet Count 326 10^3/UL Mean Platelet Volume 10.5 fl Immature Granulocytes % 0.300 % Neutrophils % 66.3 % Lymphocytes % 25.4 % Monocytes % 7.3 % Eosinophils % 0.3 % Basophils % 0.4 % Nucleated Red Blood Cells % 0.0 /100WBC Immature Granulocytes # 0.030 10^3/ul Neutrophils # 7.9 10^3/ul Lymphocytes # 3.0 10^3/ul Monocytes # 0.9 10^3/ul Eosinophils # 0.0 10^3/ul Basophils # 0.1 10^3/ul Nucleated Red Blood Cells # 0.0 10^3/ul Prothrombin Time 13.1 Sec Prothrombin Time Ratio 1.0 INR International Normalized Ratio 0.98 Activated Partial Thromboplast 29.3 Sec Time Sodium Level 142 mmol/L Potassium Level 3.5 mmol/L Chloride Level 101 mmol/L Carbon Dioxide Level 30 mmol/L Anion Gap 11 Blood Urea Nitrogen 38 mg/dl Creatinine 0.75 mg/dl Est Glomerular Filtrat Rate mL/min mL/min Glucose Level 35 mg/dl Bedside Glucose 39 mg/dL 310 mg/dL 302 mg/dL Hemoglobin A1c 6.8 % Calcium Level 9.5 mg/dl Total Bilirubin 0.5 mg/dl Direct Bilirubin 0.00 mg/dl Indirect Bilirubin 0.5 mg/dl Aspartate Amino Transf (AST/SGOT) 34 IU/L Alanine 22 IU/L Aminotransferase (ALT/SGPT) Alkaline Phosphatase 77 IU/L Creatine Kinase 59 IU/L Creatine Kinase Index 1.9 Creatinine Kinase MB (Mass) 1.12 ng/ml Troponin I 0.012 ng/ml Total Protein 7.3 g/dl Albumin 4.4 g/dl Globulin 2.90 g/dl Albumin/Globulin Ratio 1.51 Triglycerides Level 81 mg/dl Cholesterol Level 118 mg/dl LDL Cholesterol, Calculated 53 mg/dl HDL Cholesterol 49 mg/dl Cholesterol/HDL Ratio 2.4 RATIO Current Medications Medications Dose Sig/Luciano Start Time Status Last (Trade) Ordered Route PRN Stop Time Admin Dose Reason Admin Dextrose 50 ml STK-MED 12/14/18 DC (D50w ONCE .ROUTE 13:46 Syringe) 12/14/18 13:47 Dextrose 50 ml ONCE ONCE 12/14/18 DC 12/14/18 (D50w IV 14:00 14:07 Syringe) 12/14/18 14:01 Dextrose 50 ml ONCE ONCE 12/14/18 DC 12/14/18 (D50w IV 14:00 14:07 Syringe) 12/14/18 14:01 Procedures/MDM Patient's blood sugar was 37 given 2 Amp of D50. Code stroke was activated from triage has been discontinued however stat CT brain ordered. Patient's mental status improved after D50 and given a meal. Has been persistently in the 300s on [id number] blood sugar since then. Mental status continues to be normal. At this time no suspicion for infectious, cardiac, [employer] pathology. ECG Time: 1403 Ventricular Rate: 73 Rhythm: normal sinus rhythm. ST Segments: without evidence of depressions or elevations Intervals: without evidence of AV block, new BBB, long QT, Brug[place] No evidence of delta wave. Left anterior fascicular block Departure Diagnosis: Primary Impression: Hypoglycemia Condition: Stable [facility]: [facility] GAIL NOGUEIRA MD Dec 14, 2018 14:02
[2018-12-14 15:48] VITALS: BP 159/73; PULSE 80; RESP 20
== END 2018-12-14 15:49 | disposition home or self-care (01) ==
LOC: E/R 13:36
DX: E11.649 Type 2 diabetes mellitus with hypoglycemia without coma (principal); R41.82 Altered mental status, unspecified; Z79.4 Long term (current) use of insulin; Z86.73 Personal history of transient ischemic attack (TIA), and cerebral infarction without residual deficits
CPT/HCPCS: 36415; 70450; 71045; 80053; 80061; 82550; 82553; 82962; 83036; 84484; 85025; 85610; 85730; 93005; 96374